=== PATIENT | male | born 1955 | race African-American/Black ===

== ENCOUNTER 2016-09-08 16:19 | Inpatient (IN) | payer OTHER ==
--- NOTE | ~2016-09-08 | CT71 ---
[facility] A Service of [facility] RADIOLOGY TEXT RESULTS PATIENT: MANDY MADRID LOCATION: [facility] 466-01 : [birth year] UNIT #: [id number] AGE: [address]: Lawson Bautista MD SEX: M ORDER DR: [id number] [facility] [address] [place], [place] [address] [id number] MR#: [id number] Acc #: [id number] NAME: MANDY MADRID : 1955 SEX: M STUDY DATE/TIME: 09/08/2016 18:48 UNIT: [facility] ROOM: [facility] STUDY DESCRIPTION: CT Head Wo Contrast Attending Physician: Lawson Bautista M.D. Ordering Physician: Samira Jade M.D. Primary Care Physician: Channing Smith M.D. MEDICAL IMAGING REPORT This report is preliminary unless electronic signature is present EXAM CT brain without contrast. HISTORY Confusion today. Lethargy. TECHNIQUE This CT exam was performed with one or more of the following radiation dose reduction techniques: automatic exposure control, adjustment of mA and/or kV according to patient size, and iterative reconstruction. FINDINGS CT brain without contrast demonstrates a large chronic infarct in the left frontal lobe and anterior temporal and parietal lobes, including the left lentiform nucleus and thalamus, with encephalomalacia within the infarcted territory, and compensatory dilatation of the left lateral ventricle, stable compared to CT 08/18/2016. No intracranial hemorrhage, mass or edema. Minimal mucosal thickening in posterior maxillary sinuses and mild mucosal thickening in the right sphenoid sinus. IMPRESSION 1. No acute findings. 2. Moderately large chronic infarct in the left frontal lobe and in the anterior left temporal and parietal lobes and in the left lentiform nucleus and thalamus. No significant change compared to 08/18/2016. Dictated by... Drew Munoz M.D. THIS IS AN ELECTRONICALLY VERIFIED REPORT Drew Munoz M.D. at 09/09/2016 3:32 PM DFL/gz [facility] A Service of [facility] RADIOLOGY TEXT RESULTS PATIENT: MANDY MADRID LOCATION: [facility] 466-01 : [birth year] UNIT #: [id number] AGE: [address]: Lawson Bautista MD SEX: M ORDER DR: TD: 09/09/2016 08:50 JOB #: [id number] MEDICAL IMAGING REPORT COPY
--- NOTE | ~2016-09-08 | A ---
[facility] Nutrition Therapy DATE: 09/09/16 Patient: MANDY MADRID Physician: NEW Address: [facility] Room/Bed: [address] [place] [address], Zip: [place] [address] Admit Date: 09/08/16 Date of : [birth year] Height: 5 2 Weight: 115 52.16 NUTRITIONAL ASSESSMENT: REASON: Enteral nutrition assessment 61 yo male admitted for AMS, hypothermia PMH: CVA, aphasia, dysphagia s/p PEG, right AKA, HTN, DM, HLD, GERD, CHF, osteomyelitis, chronic anemia Anthropometrics: Ht: 67" (per previous nutrition assessments) Adm wt: 52.2 kg BMI: 18 Adjusted IBW (for amputation): 58.8 kg, 89% IBW Labs: Na+ 146 Cl- 119 Gluc 215 BUN 73 Creat 3.1 Accuchecks 94-203 GFR 26.7 Meds: Levemir, D5%, sodium bicarbonate, pepcid, novolog, NaCl, ferrous gluconate I/O & Bowel function: 2780/0, last BM not noted, PEG Skin Integrity: Scab- BUE/ BLE/ face Edema: none noted Estimated Nutrition Needs: 8487-7823 kcals (30-35 kcals/kg) 63-78 grams protein (1.2-1.5 grams/kg) VT enteral nutrition regimen: Osmolite 1.5 - bolus 5 cans daily @ 0500, 0900, 1300, 1700, 2100 125 mL H20 flushes before and after each bolus Assessment: Chart reviewed, events noted. Pt admitted from [facility] for AMS and hypothermia. Pt has a h/o dysphagia s/p PEG and does not consume any nutrition PO. Pt is well-known to RDs at [facility], as he has had several previous admissions. Pt has increased sodium levels, and added 250 mL free H20 flushes q 6 hrs. Pt has not received enteral nutrition since admission yesterday due to aspiration risk/ to rule out aspiration (per RN report). Per VT information in chart, the pt was receiving bolus enteral nutrition as noted above. Per previous admission nutrition assessments, the pt has historically received Glucerna for enteral nutrition. Please note, the pt does have elevated blood glucose levels ranging from 94-203. RD unsure why the pt is receiving Osmolite at the VT, which has no fiber. Based on the pt[facility], he weighed ~61 kg on 08/19/16, indicating ~8.8 kg weight loss since then. Please see recommendations below. [facility] Nutrition Therapy DATE: 09/09/16 Patient: MANDY MADRID Physician: NEW Address: [facility] Room/Bed: [address] [place] [address], Zip: [place] [address] Admit Date: 09/08/16 Date of : 59 Height: 5 2 Weight: 115 52.16 Dx: Inadequate protein-energy intake RT clinical condition r/o aspiration AEB enteral nutrition being held ATT. Intervention: 1. Enteral nutrition once medically feasible Monitoring, Evaluation and Goals: 1. Enteral nutrition; provide >80% goal volume x 24 hrs 2. Labs; WNL 3. Weight; prevent weight loss, promote weight maintenance/gain 4. GI; promote regular GI function 5. Skin; prevent breakdown Recommendations: 1. Once medically feasible, would resume enteral nutrition. RD recommending to start continuous feeding instead of bolus feeding due to the pt's risk of aspiration. RD also recommending to start Glucerna 1.5 instead of Osmolite 1.5, as Osmolite does not provide fiber and RD sees no reason why the pt would need a fiber-restricted formula. -If ordered by MD, start Glucerna 1.2 @ 20 mL/hr. Increase by 10 mL q 6 hrs as tolerated to goal of 60 mL/hr. This will provide: 1728 kcals/ 86 grams protein/ 1159 mL free H20 Free H20 flushes per MD orders 2. Obtain accurate weights for trending purposes and estimating needs. 3. Ensure the HOB is upright at a minimum of 30-45 degrees during EN administration. Pt is at moderate nutritional risk. RD will follow hospital course. Respectfully, CRISTIANO MERRITT RD, LD Food and Nutritional Services [facility] cc: client file
--- NOTE | ~2016-09-08 | CO ---
Unit #: [id number] #: [id number] Patient: MANDY MADRID [id number] [address] [place], [place] [address] [id number] MR#: [id number] NAME: MANDY MADRID ROOM: [facility] Age: 61 Sex: M Admission Date: 09/08/2016 : 1955 Attending Physician: Lawson Bautista M.D. Primary Care Physician: Channing Smith M.D. Consultation Date: 09/09/2016 CONSULTATION REPORT REASON FOR CONSULTATION Renal failure. Thank you very much for asking us to see this patient in consultation. HISTORY OF PRESENT ILLNESS Mr. Raf Madrid is a 61-year-old male with history of left MCA, CVA with hemiplegia, decreased response, who presented from rehab again with decreased mental status, hypothermia, was admitted and noted to have an increased BUN and creatinine of 80 and 3.1. The patient was hypothermic and was admitted for possible sepsis. We were asked to see the patient due to renal failure. The patient currently decreased response, unable to get any history from him. PAST MEDICAL HISTORY History of left MCA, CVA with again hemiplegia, history of diabetes mellitus, history of hypertension, history of pneumonia and was discharged on 08/22/2016 felt related to MRSA and was treated with according to the records 1 g of vancomycin q.24 x2 weeks, history of right AKA, history of anemia, history of status post PEG placement, history of hyperlipidemia, history of gastroesophageal reflux disease, and history of chronic kidney disease with a baseline creatinine probably around 1.5 plus or minus. SOCIAL HISTORY He is at [facility]. No smoking or alcohol. ALLERGIES Include lactulose. FAMILY HISTORY Unable to obtain. REVIEW OF SYSTEMS Unable to obtain. CURRENT MEDICATIONS Include still is on vancomycin, Diflucan, Levemir, Plavix, aspirin, Rapaflo, tobramycin, Zosyn, hydralazine, Pepcid, and insulin. PHYSICAL EXAMINATION GENERAL: Again decreased response currently. VITAL SIGNS: His highest temperature is 97.4, it was low in the low 90s, his pulse 44 to 71, blood pressure 94 to 146/54 to 98. He had 2800 in and output not recorded, although it looks like about 600 to 700 cc in his Unit #: [id number] #: [id number] Patient: MANDY MADRID right now. HEENT: His pupils are reactive to light. Mouth is dry. NECK: Supple. No adenopathy. CARDIAC: He is without a rub. Appears to have a regular rhythm. LUNGS: Have a few occasional rhonchi only. ABDOMEN: Bowel sounds are positive. Nontender. Has a feeding tube present. EXTREMITIES: He has a right AKA. Left have no lower extremity swelling. SKIN: No acute rashes. NEUROLOGIC: Again decreased response, history of stroke. : Jane catheter is in place. DIAGNOSTIC STUDIES LABORATORY RESULTS: This morning shows sodium down to 146 from 149, potassium 4.3, chloride is 119, CO2 of 17 down from 20, BUN 73 down from 80, creatinine still 3.1, glucose 215. Albumin is 2.7, alkaline phosphatase 138. His hemoglobin is 10.1, white count 4100, platelets 151,000. His creatinine on 08/27/2016 was 1.4. His UA shows specific gravity of 1.016, 2+ protein, 100 to 200 rbc's, too numerous to count wbc's, positive yeast. His blood cultures that are pending. Urine cultures that is pending. Urine eosinophils that is pending. IMAGING STUDIES: His chest x-ray showed a questionable left basilar infiltrate still. ASSESSMENT AND PLAN 1. Acute on chronic kidney disease, stage 3. Certainly, the patient with increased creatinine, it could be related to vancomycin versus sepsis with hypoperfusion versus volume depletion versus other. I agree with IV fluids for now, although we will adjust it to D5W with 3 amps of bicarb at 125 mL/hour. Keep Jane in and we will follow input and output closely. We will check full set of electrolytes in the morning. 2. Hypernatremia. Sodium is improving. The patient most likely has a hypovolemic hypernatremia as well as probably free water deficit, again adjust fluids. He is getting free water and his Dobbhoff tube as well was ordered, agree with continuing this. 3. Acidosis most likely related to kidney failure. We will change his fluids to D5W with 3 amps of bicarb at 125 mL/hour. We will follow. 4. Hypothermia with possible sepsis/urinary tract infection/pneumonia. We will go ahead and discontinue vancomycin and tobramycin, and keep on Zosyn and Diflucan for now. 5. History of cerebrovascular accident with decreased response. Dictated by.Kristine Olivier/claudia TD: 09/10/2016 00:48 JOB #: [id number] Unit #: [id number] #: [id number] Patient: MANDY MADRID CONSULTATION REPORT X Beth Florez MD X CONSULTATION REPORT
--- NOTE | ~2016-09-08 | CO ---
Unit #: [id number] #: [id number] Patient: MANDY MADRID [id number] [address] [place], [place] [address] [id number] MR#: [id number] NAME: MANDY MADRID ROOM: [facility] Age: 61 Sex: M Admission Date: 09/08/2016 : 1955 Attending Physician: Samira Jade M.D. Primary Care Physician: Channing Smith M.D. Consultation Date: 09/08/2016 CONSULTATION REPORT REASON FOR CONSULTATION Altered mental status and possible pneumonia. HISTORY OF PRESENT ILLNESS This is an unfortunate 61-year-old -[place] gentleman with a past medical history significant for left MC, MRSA pneumonia, chronic kidney disease, and hypertension who presented to the emergency room from the custodial for evaluation of altered mental status. Patient is nonverbal and unable to provide any history. He is currently lethargic but he is moving all his extremities spontaneously. His labs are consistent with severe acute kidney injury and hyponatremia. His lactic acid was normal on presentation but his blood gas is consistent with metabolic acidosis. Patient's blood pressure has been stable and he is making urine at adequate rate so far. Upon presentation his temperature was also low and he needed Bearhugger. PAST MEDICAL HISTORY 1. Left MCA, cerebrovascular accident with right hemiplegia, and spasticity with an expressive aphasia and dysphagia. 2. Diabetes. 3. Hypertension. 4. Hyperlipidemia. 5. GERD. 6. Chronic kidney disease. PAST SURGICAL HISTORY 1. Right below the knee amputation. 2. PEG tube placement. 3. EGD. SOCIAL HISTORY The patient is a custodial resident. His code status is full code. There is no tobacco or alcohol use in the records. FAMILY HISTORY Noncontributory. ALLERGIES Lactulose. Unit #: [id number] #: [id number] Patient: MANDY MADRID HOME MEDICATION 1. Aspirin. 2. Plavix. 3. Pepcid. 4. Hydralazine. 5. Protonix. 6. Diflucan. 7. Lasix. 8. Flomax. 9. Novolin R. REVIEW OF SYSTEMS Unable to obtain from the patient due to his condition. PHYSICAL EXAMINATION GENERAL: The patient is lethargic, not following commands. HEENT: Head atraumatic and normocephalic. EOMI. NECK: Supple. No JVD. No lymphadenopathy. CHEST: Bilateral diminished breath sounds at the bases, mainly abdomen soft, nontender, bowel sounds is positive. No hepatosplenomegaly. EXTREMITIES: No edema or cyanosis. SKIN: No rashes. LIQUOR BLENDER: Patient is moving his left side. He is nonverbal. He does not follow any commands. DIAGNOSTIC STUDIES LABORATORY STUDIES: Creatinine 3.1, sodium 151, chloride 124, white blood count 3.8. IMAGING STUDIES: Chest x-ray is showing much improvement in his infiltrate compared to last month. ASSESSMENT 1. Toxic metabolic encephalopathy. 2. UTI. 3. Hyponatremia. 4. Nonanion gap metabolic acidosis. 5. Acute on chronic kidney disease. 6. Chronic anemia. 7. Diabetes. 8. Hypertension. 9. History of liver MCA CVA. PLAN 1. Chest x-ray was reviewed by me and I doubt that the patient has pneumonia; however, aspiration pneumonia is always a possibility in his condition. 2. Will continue his broad spectrum antibiotics but likely will be able to de-escalate most of them, if not all soon based on culture. 3. Will add Diflucan to cover for yeast UTI. 4. IV hydration with special attention to his bicarb and sodium. 5. Add free water. 6. DVT and GI prophylaxis. I would like to thank you for allowing me to be part of this patient's care. Unit #: [id number] #: [id number] Patient: MANDY MADRID Dictated by... Melody Traylor M.D. EA/cliff TD: 09/09/2016 06:29 JOB #: [id number] CONSULTATION REPORT X MELODY CHERRY MD CONSULTATION REPORT
--- NOTE | ~2016-09-08 | TOC ---
Unit #: [id number] #: [id number] Patient: MANDY MADRID [id number] [address] [address] [id number] MR#: [id number] NAME: MANDY MADRID ROOM: 469 Age: 61 Sex: M Admission Date: 09/08/2016 : 1955 Attending Physician: Lawson Bautista M.D. Primary Care Physician: Channing Smith M.D. TRANSFER OF CARE SUMMARY WORKING DIAGNOSES 1. Hypothermia. Ruled out infectious process. 2. Acute on chronic kidney disease. 3. History of MRSA. 4. Ruled out aspiration pneumonia. 5. Hyponatremia. 6. Urinary tract infection with an. 7. History of left middle cerebral artery cerebrovascular accident with residual right-sided hemiplegia and aphasia. 8. Type 2 diabetes. 9. Essential hypertension. 10. Hyperlipidemia. 11. Chronic anemia. 12. History of osteomyelitis. 13. Severe chronic protein malnutrition. Dietary is following on tube feeding. PROCEDURES None. DIAGNOSTIC DATA IMAGING: Chest x-ray on 09/08/2016, findings compared to 08/22/2016. There has been partial clearing of the left base with probable mild remaining infiltrate or atelectasis in the retrocardiac left lower lobe, mild cardiac enlargement persists. The pulmonary and vascularity is normal. The remainder of the lungs are clear. No pleural effusions. Head CT of 09/08/2016, no acute findings. Moderately large chronic infarct in the left frontal lobe and in the anterior left temporal and parietal lobes and in the left lentiform nucleus and thalamus. No significant change compared to 09/04/2016. Ultrasound of the kidneys 09/08/2016 with impression of increased bilateral cortical echotexture suggesting changes of chronic medical renal disease. Normal size of the kidneys with normal cortical thickness. No shadowing stone or hydronephrosis. No renal mass lesion is identified. LABORATORY: To date, BMP with glucose of 240, BUN 35, creatinine 2.6, sodium 141, potassium 3.8, chloride 110, CO2 26, calcium 3.8, phosphorus 3.8, magnesium 1.9, total protein 2.6, albumin 2.4, total bilirubin 0.8. CBC with white blood cell count 5.3, RBC 3.86, hemoglobin 5.9, hematocrit 30.9, MCV 80.1, MCH 24.8, MCHC 30.9, RDW 21.3, platelets 87, MPV 9.9. CONSULTANTS Unit #: [id number] #: [id number] Patient: MANDY MADRID Dr. Louise, Dr. Laureen Traylor of pulmonary. Dr. Florez of nephrology. HOSPITAL COURSE The patient is a 61-year-old male with a past medical history of left MCA, cerebrovascular accident, MRSA pneumonia, chronic kidney disease, essential hypertension, diabetes, hyperlipidemia, chronic anemia, osteomyelitis. The patient was referred to the emergency department by the group home for evaluation of hypothermia, altered mental status. History was obtained from chart review and discussion with the emergency room staff. The patient has aphasia and is nonverbal at baseline. The patient was sent from the group home for hypothermia and decreased responsiveness. At the group home he was sitting in the chair. He is nonverbal at baseline. Upon arrival in the emergency department his temperature was 90 degrees, pulse 45, respiratory rate 10, blood pressure 113/82, oxygen saturation was 100% on 2 liters. Chest x-ray shows improvement infiltrate in the left base. Lab was significant for acute kidney injury with a creatinine of 3.1. White blood cell count was 3.8, lactic acid was 1.9. He was placed on Bear hugger, given aggressive IV fluid hydration and was treated with vancomycin, Zosyn and tobramycin. The patient was admitted for possible sepsis, hypothermia and possible aspiration pneumonia, as well as acute kidney injury and hyponatremia. The patient was seen in consultation with pulmonary, who reviewed his chest x-ray and felt that the patient did not have pneumonia, but there was always the possibility the patient had aspiration pneumonia. At this time the patient is oxygenating well on room air in the mid 90s on room air. He has been off of oxygen. I highly doubt that he even had any pneumonia nor aspiration pneumonia. Antibiotics were not continued at this time. We did find that the patient did have yeast in his urine and he has been treated with Diflucan to date, stopping at this time. We are checking a urinalysis and culture to see if there is any component of urinary tract infection at this point. With regard to his acute kidney injury, nephrology is following him. No eosinophils are seen in his urine. We are trying to see how the patient's kidney function will progress with discontinuation of the IV fluids and just giving him his tube feedings and free fluid. The initial thought was that this may be due to Lasix, but Lasix was discontinued at the last hospitalization and I have reviewed his group home medications and they do not include Lasix. I believe that some of this acute kidney injury was due to the use of vancomycin. During his last hospitalization discharge it was recommended that he be completed with a course of vancomycin IV for a total of two weeks since he was intubated and MRSA had grown out of his sputum culture at that time. Again, no signs of pneumonia at this time. He has been off of antibiotics. The patient would still become hypothermic at this time with the lowest temperatures in the 94s. I believe the patient is severely protein malnourished despite having his PEG tube feedings. Nutrition is following, but with the severe malnourished condition the patient likely has no body fat to keep up with his body temperature. At this time I am recommending that the Bear hugger be taken off completely and not be restarted. If his body temperature does fall below 95 we can check the blood culture and check a procalcitonin to ensure that there is indeed no infectious process going on at this time. Again, would not treat this patient with any antibiotics at this time as I do not find a source for his infection. Long-term outlook, prognosis is very poor. The patient is a full code. CURRENT MEDICATIONS 1. Hydralazine 50 mg q.8 h. through the PEG. Unit #: [id number] #: [id number] Patient: MANDY MADRID 2. Folic acid 1 mg daily through the PEG. 3. Protonix 40 mg daily through the PEG. 4. FeroSul 324 mg daily through the PEG. 5. Plavix 75 mg daily through the PEG. 6. Aspirin 81 mg daily through the PEG. 7. Levemir 5 units subcutaneous at nighttime. 8. Sliding scale low dose q.i.d. Dictated by... CHICHO Garcia TD: 09/12/2016 13:20 JOB #: [id number] TRANSFER OF CARE SUMMARY X X TRANSFER OF CARE SUMMARY
--- NOTE | ~2016-09-08 | FU ---
[facility] Nutrition Therapy DATE: 09/12/16 Patient: MANDY MADRID Physician: NEW Address: [facility] Room/Bed: [address] [place] [address], Zip: [place] [address] Admit Date: 09/08/16 Date of : [birth year] Height: 5 2 Weight: 114 52.16 NUTRITION MONITORING/FOLLOW-UP: Reason: PT SEEN FOR FOLLOW-UP/ENTERAL NUTRITION SUPPORT DX: HYPOTHERMIA, PNA Anthropometrics: 5'7", WT: 114# (52 KG), BMI: 17.9 -ADMIT WEIGHT: 114# Labs: GLU: 240, BUN: 35, CREAT: 2.6, CA+:8.3, ALB: 2.4, A1c: 10.0 (07/01/16), GFR: 32.7 Meds: FOLIC ACID, PROTONIX, NACL I&O's: 2840/1508 Skin: ISSUES NOTED (PT IS (R) AKA) Estimated Nutrition Needs: 3332-6629 KCAL 63-78 G PRO Assessment: CHART REVIEWED AND EVENTS NOTED. PT SEEN FOR FOLLOW-UP. PT CURRENTLY NPO, HAS NOT RECEIVED ENTERAL NUTRITION SUPPORT SINCE ADMIT 09/08/16 (NPO X 4 DAYS). NO FAMILY IN ROOM AT TIME OF VISIT. PLANS IN PLACE TO BEGIN ALTERNATIVE NUTRITION SUPPORT PER RD RECOMMENDATIONS. RD TO CONTINUE TO FOLLOW. SEE RECOMMENDATIONS BELOW. Dx: INADEQUATE PROTEIN-ENERGY INTAKE R/T CLINICAL CONDITION R/O ASPIRATION AEB ENTERAL NUTRITION BEING HELD ATT= NOT RESOLVED. Intervention: 1. ENTERAL NUTRITION ON HOLD, NPO X 4 DAYS! Monitoring, Evaluation and Goals: GOALS NOT MET 1. ENTERAL NUTRITION; PROVIDE >80% GOAL VOLUME X 24 HOURS 2. LABS; WNL 3. WEIGHTS; PREVENT WEIGHT LOSS; PROMOTE WEIGHT MAINTENANCE 4. GI; PROMOTE REGULAR GI FUNCTION 5. SKIN; PREVENT BREAKDOWN MONITOR: -TF INITIATION/RATE/RESIDUALS -LABS -WEIGHTS Recommendations: [facility] Nutrition Therapy DATE: 09/12/16 Patient: MANDY MADRID Physician: NEW Address: [facility] Room/Bed: [address] [place] [address], Zip: [place] [address] Admit Date: 09/08/16 Date of : 59 Height: 5 2 Weight: 114 52.16 1. ONCE MEDICALLY FEASIBLE, BEGIN ALTERNATIBE NUTRITION SUPPORT OF GLUCERNA 1.2 @ 10 ML/HR, ADVANCE 10 ML q 6 HOURS TO GOAL RATE OF 60 ML/HR X 24 HOURS -PROVIDES 1728 KCAL, 86 G PRO, 1166 ML FREE H20 CONTINUE FREE H20 FLUSHES OF 200 ML q 6 HOURS PER MD ORDERS (1966 ML TOTAL H20) 2. CONTINUE TO OPTIMIZE BOWEL REGIMEN 3. CONTINUE TO OBTAIN WEIGHTS q 3 DAYS FOR MONITORING PURPOSES 4. ENSURE HOB IS UPRIGHT AT A MINIMUM OF 30-[address] ADMINISTR[address] WILL F/U PER PROTOCOL PT IS MODERATELY COMPROMISED Respectfully, JORDY GUADALUPE MS, RD, LD Food and Nutritional Services [facility] cc: client file
--- NOTE | ~2016-09-08 | EKG ---
PATIENT: MANDY MADRID UNIT #: [id number] Ventricular Rate: 44 BPM Atrial Rate: 44 BPM P-R Interval: 184 ms QRS Duration: 106 ms Q-T Interval: 510 ms QTC Calculation(Bezet): 436 ms P [place]: 69 degrees Calculated R [place]: -14 degrees Calculated T [place]: 104 degrees Diagnosis Line: Marked sinus bradycardia Diagnosis Line: Voltage criteria for left ventricular hypertrophy Diagnosis Line: ST and T wave abnormality, consider lateral ischemia Diagnosis Line: Abnormal ECG Diagnosis Line: When compared with ECG of 19-AUG-2016 08:11, Diagnosis Line: Significant changes have occurred Diagnosis Line: Confirmed by NIRALI FAITH MD ([id number]) on 09/08/2016 Diagnosis Line: 7:35:41 PM INTERPRETING MD: VIANNEY SHORT
--- NOTE | ~2016-09-08 | DS ---
Unit #: [id number] #: [id number] Patient: MANDY MARDID [id number] [address] [address] [id number] I MR#: [id number] NAME: MANDY MADRID ROOM: 469 Age: 61 Sex: M Admission Date: 09/08/2016 : 1955 Discharge Date: 09/14/2016 Attending Physician: Massiel Demarco M.D. Primary Care Physician: Channing Smith M.D. DISCHARGE SUMMARY HISTORY OF PRESENT ILLNESS Please see interval discharge summary dictated from September 12, 2016. 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 Through hospital course, essentially infection process was ruled out. Initial laboratory studies revealed a creatinine of 3.1. Today at time of discharge, his creatinine now stands at 2.5 which appears to be his baseline. His lactic acid level was 1.9. He was placed on appropriate IV fluids as well as a sepsis protocol. His x-ray initially did not show any acute infiltrate; however, pulmonary services including Dr. Louise was consulted secondary to consideration for possible aspiration. At this point in time, he appears stable for discharge. Overall, his long-term prognosis is poor at best and has been already reinforced with the sister of the patient on numerous occasions. FINAL DISCHARGE DIAGNOSES 1. Mental status changes, now resolved. 2. Acute on chronic kidney disease, baseline creatinine 2.5. 3. Hypothermia on admission, now resolved. 4. Prior history of numerous hospital admissions secondary to acute respiratory failure from methicillin-resistant Staphylococcus aureus/aspiration pneumonia. 5. Chronic hyponatremia. 6. Urinary tract infection. 7. 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 8. Type 2 diabetes. 9. Hypertension. 10. Hyperlipidemia. 11. Severe chronic protein malnutrition. DISCHARGE MEDICATIONS 1. Hydralazine 50 mg p.o. q.8. Unit #: [id number] #: [id number] Patient: MANDY MADRID 2. Osmolite 1.5 liquid PEG. 3. NovoLog q.6 low dose sliding scale. 4. Levemir 5 units subcutaneous nightly. 5. Ferrous gluconate 324 mg PEG daily. 6. Aspirin 81 mg PEG daily. 7. Plavix 75 mg PEG daily. 8. Pepcid 20 mg PEG b.i.d. 9. Folic acid 1 mg PEG daily. 10. Rapaflo 8 mg PEG daily. DISCHARGE CONDITION Stable. DISCHARGE DISPOSITION Back to snf. PROGNOSIS Poor. Dictated by... Kristine Claros/callie TD: 09/14/2016 08:57 JOB #: [id number] DISCHARGE SUMMARY X Massiel Demarco MD X DISCHARGE SUMMARY
--- NOTE | ~2016-09-08 | HP ---
Unit #: [id number] #: [id number] Patient: MANDY MADRID [id number] [address] [place], [place] [address] [id number] MR#: [id number] NAME: MANDY MADRID ROOM: Age: 61 Sex: M Admission Date: 09/08/2016 : 1955 Attending Physician: Chris Bueno M.D. Primary Care Physician: Channing Smith M.D. HISTORY AND PHYSICAL CHIEF COMPLAINT Altered mental status. HISTORY OF PRESENT ILLNESS The patient is a 61-year-old male with past medical history of left MCA cerebrovascular accident, MRSA pneumonia, chronic kidney disease, hypertension, diabetes, hyperlipidemia, chronic anemia, osteomyelitis, who presented to the emergency department from the assisted for evaluation of the above. History is obtained from chart review and discussion with the ER staff due to the patient's altered mental status and baseline neurologic function. The patient was apparently sent from the assisted for hypothermia and decreased responsiveness. Apparently at the assisted he was sitting up in the chair yesterday. He is nonverbal at baseline. Upon arrival in the emergency department rectal temperature was 90, pulse 45, respirations 10, blood pressure 113/82, oxygen saturation was 100% on two liters. Chest x-ray shows improving infiltrate at the left base. Laboratory notable for white blood cell count of 3.8, creatinine is 3.1, lactic acid 1.9. He was placed on a Rhina Hugger, given 1 L of normal saline. He has also been given vancomycin, Zosyn and tobramycin. He is being admitted to [facility] for evaluation and further treatment. PAST MEDICAL HISTORY 1. Admission to [facility] August 18-2016 for altered mental status, healthcare-associated pneumonia, hypernatremia. He did require intubation during that admission. Sputum culture grew MRSA. He was discharged to the assisted on vancomycin. 2. Left MCA cerebrovascular accident with right hemiplegia and spasticity with expressive aphasia and dysphagia. The patient is status post PEG tube placement. 3. Diabetes. 4. Hypertension. 5. Hyperlipidemia. 6. GERD. 7. Chronic anemia. 8. Chronic kidney disease with a baseline creatinine of 1.7. 9. 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 PAST SURGICAL HISTORY 1. Right below the knee amputation. Unit #: [id number] #: [id number] Patient: MANDY MADRID 2. PEG tube placement. 3. EGD. SOCIAL HISTORY The patient is at a assisted. His code status is a Full Code. There is no tobacco or alcohol use. FAMILY HISTORY Family history is unobtainable. ALLERGIES Lactose. HOME MEDICATIONS Home medications include ferrous gluconate, aspirin, Plavix, Pepcid, hydralazine, Protonix, Diflucan, Lasix, Flomax, Novolin R. Home medications will need to be reviewed and verified. REVIEW OF SYSTEMS A complete review of systems is unobtainable from the patient due to altered mental status. DIAGNOSTIC STUDIES CARDIOVASCULAR: EKG shows marked sinus bradycardia with a rate of 44 beats per minute. There is T-wave inversion in leads V4-V6. IMAGING: Chest x-ray shows partial clearing of left basilar infiltrate. LABORATORY: Lactic acid is 1.9. INR is 1. Comprehensive metabolic panel is notable for a sodium of 149, chloride is 120, bicarb is 20, glucose 184, BUN and creatinine 80 and 3.1 respectively, alkaline phosphatase 159, total protein 8.5, albumin is 3.1. Complete blood count notable for white blood cell count of 3.8, hemoglobin and hematocrit 10.9 and 36.5 respectively. Urinalysis notable for 3+ leukocyte esterase, 2+ protein, 100 to 200 red blood cells, innumerable white blood cells. PHYSICAL EXAMINATION VITAL SIGNS: Temperature is 90. Pulse 45. Respirations 10. Blood pressure 113/82. Oxygen saturation is 100% on 2 L. GENERAL: The patient is an -Bhut[place] male who is lethargic. He opens eyes to physical stimuli. He is moving his left upper and lower extremities. HEENT: The head is atraumatic. Mucous membranes are dry. NECK: Neck is supple. Trachea is midline. CARDIOVASCULAR: Bradycardic in the 40s. LUNGS: Lungs demonstrate scattered rhonchi. Breathing is not labored. ABDOMEN: Abdomen is soft. He does have a PEG tube in place. Bowel sounds are present in all four quadrants. EXTREMITIES: The right lower extremity has been previously amputated. He does have Steri-Strips in place. There is no erythema. There is no pedal edema involving the left lower extremity. NEUROLOGIC: The patient is moving his left side. He opens eyes to painful stimuli. He is aphasic, agitated with bizarre behavior at baseline apparently. PSYCHIATRIC: Unable to assess. SKIN: Skin of examined areas is warm and dry. ASSESSMENT Unit #: [id number] #: [id number] Patient: MANDY MADRID The patient is a 61-year-old male with: 1. Hypothermia concerning for possible sepsis. 2. History of methicillin-resistant Staphylococcus aureus pneumonia. The patient was discharged on vancomycin. Chest x-ray today is showing interval improvement of the basilar infiltrate that was previously noted. 3. Opncu-xh-sciflqr kidney disease. The patient's creatinine was 1.4 on August 27, 2016. It is 3.1 today. He is on Lasix which could be contributing. 4. Hypernatremia. The patient appears dehydrated. He is on tube feeds at the assisted. Will need to clarify the regimen. 5. Urinary tract infection. Urine culture from August 09, 2016 grew yeast species but the rest have been no growth. 6. History of left middle cerebral artery cerebrovascular accident with residual right-sided hemiplegia and aphasia. 7. Diabetes. The patient had a hemoglobin A1C on July 01, 2016 that was 10. 8. Hypertension. 9. Hyperlipidemia. 10. Chronic anemia. The patient's hemoglobin was 9.6 on August 27. It is 10.9 today. 11. History of osteomyelitis with cultures as noted above. PLAN 1. Admit to intermediate level. 2. N.p.o. 3. Rhina hugger per protocol. 4. Blood cultures x2, 5. Sputum culture and sensitivity. 6. Supplemental oxygen 2 to 4 L to maintain saturations greater than 92%. 7. Check ABG. 8. Sepsis protocol with repeat lactic acid. 9. Vancomycin IV, tobramycin IV, Zosyn IV for possible healthcare-associated pneumonia pending further workup. 10. Procalcitonin level. 11. Streptococcal and Legionella urine antigens. 12. Consult Dr. Traylor regarding possible pneumonia. 13. Normal saline at 75 mL an hour. 14. Urine sodium, creatinine and eosinophils. 15. Renal ultrasound for further evaluation of wujrb-wl-jamdqqr kidney disease. 16. Strict Is and Os. 17. Hold Lasix. 18. Will also hold tube feeds for now. 19. Repeat BMP later this evening to follow up hypernatremia. 20. Neuro checks. 21. Low dose sliding-scale insulin with Accu-Cheks. 22. Monitor heart rate closely. 23. May need to start the patient on dopamine drip. 24. Serial cardiac enzymes. 25. Urine culture and sensitivity on urine in the lab. 26. Repeat labs in the morning. 27. Regarding code status: The patient is a Full Code. Unit #: [id number] #: [id number] Patient: MANDY MADRID Dictated by Kristine Wolfe/lexa TD: 09/08/2016 18:33 JOB #: [id number] HISTORY AND PHYSICAL X Samira Jade MD HISTORY AND PHYSICAL
--- NOTE | ~2016-09-08 | CR72 ---
[facility] A Service of [facility] & [facility] RADIOLOGY TEXT RESULTS PATIENT: MANDY MADRID LOCATION: [facility] 466-01 : [birth year] UNIT #: [id number] AGE: [address]: Lawson Bautista MD SEX: M ORDER DR: [id number] [facility] [address] [place], [place] [address] [id number] I MR#: [id number] Acc #: [id number] NAME: MANDY MADRID : 1955 SEX: M STUDY DATE/TIME: 09/08/2016 15:14 UNIT: [facility] ROOM: [facility] STUDY DESCRIPTION: CR Chest Single View Portable Attending Physician: Samira Jade M.D. Ordering Physician: Skip Gardner M.D. Primary Care Physician: Channing Smith M.D. MEDICAL IMAGING REPORT This report is preliminary unless electronic signature is present EXAM Portable chest HISTORY Shortness of air today. No injury. FINDINGS Compared to 08/22/2016, there has been partial clearing of the left base with probable mild remaining infiltrate or atelectasis in the retrocardiac left lower lobe. Mild cardiac enlargement persists. The pulmonary vascularity is normal. The remainder of the lungs are clear. No pleural effusions. Dictated by... Drew Munoz M.D. THIS IS AN ELECTRONICALLY VERIFIED REPORT Drew Munoz M.D. at 09/09/2016 3:29 PM DFL/psc TD: 09/09/2016 01:51 JOB #: [id number] MEDICAL IMAGING REPORT COPY
--- NOTE | ~2016-09-08 | US77 ---
[facility] A Service of [facility] RADIOLOGY TEXT RESULTS PATIENT: MANDY MADRID LOCATION: [place] [address] : [birth year] UNIT #: [id number] AGE: [address]: Lawson Bautista MD SEX: M ORDER DR: [id number] [facility] [address] [place], [place] [address] [id number] I MR#: [id number] Acc #: [id number] NAME: MANDY MADRID : 1955 SEX: M STUDY DATE/TIME: 09/08/2016 20:51 UNIT: [facility] ROOM: [facility] STUDY DESCRIPTION: US Kidney Bilateral Complete Attending Physician: Lawson Bautista M.D. Ordering Physician: Samira Jade M.D. Primary Care Physician: Channing Smith M.D. MEDICAL IMAGING REPORT This report is preliminary unless electronic signature is present EXAM Bilateral renal ultrasound. DATE 09/08/2016 at 205 HISTORY Acute on chronic kidney disease. GFR 25.7. COMPARISON Bilateral renal ultrasound, 05/22/2016. FINDINGS The right kidney measures 11.2 cm and the left kidney measures 11.7 cm in length. While there is normal cortical thickness, the cortical echotexture bilaterally appears somewhat echogenic. No cystic or solid renal mass lesion, shadowing stone, or hydronephrosis is appreciated on either side. Urinary bladder is not visualized and decompressed. IMPRESSION 1. Increased bilateral cortical echotexture suggesting changes of chronic medical renal disease. Normal size of the kidneys with normal cortical thickness. 2. No shadowing stone or hydronephrosis. No renal mass lesion is identified. Dictated by... Marielle Shearer M.D. THIS IS AN ELECTRONICALLY VERIFIED REPORT Marielle Shearer M.D. at 09/09/2016 2:09 PM [facility] A Service of [facility] & [facility] RADIOLOGY TEXT RESULTS PATIENT: MANDY MADRID LOCATION: [facility] : 59 UNIT #: [id number] AGE: [address]: Lawson Bautista MD SEX: M ORDER DR: MISTY/carla TD: 09/09/2016 09:36 JOB #: [id number] MEDICAL IMAGING REPORT COPY
[2016-09-08 15:22] LABS: BASOPHIL% 0.2 % (0-2.5); EOSINOPHIL# 0.2 X10e3 (0-0.7); EOSINOPHIL% 4.7 % (0.0-7.0); HEMATOCRIT 36.5 % (38.0-50.0); HEMOGLOBIN 10.9 gm/dL (13.0-16.0); LYMPHOCYTE% 26.8 % (17.0-45.0); MEAN CELL VOLUME 83.6 FL (83-96); MEAN CORPUSCULAR HGB CONC 29.9 g/dL (30-36); MEAN PLATELET VOLUME 10.2 FL (6.5-11.5); MONOCYTE# 0.3 X10e3 (0-1.0); NEUTROPHIL# 2.3 X10e3 (1.5-7.1); NEUTROPHIL% 61.3 % (40-75); PLATELET COUNT 167 X10e3 (140-420); RED BLOOD COUNT 4.37 X10e (3.90-5.60); RED CELL DISTRIBUTION WIDTH 22.6 % (11.0-15.5); WHITE BLOOD COUNT 3.8 X10e3 (4.0-10.5)
[2016-09-08 15:23] LABS: DIFF IND YES
[2016-09-08 15:29] LABS: PARTIAL THROMBOPLASTIN TIME 36.2 SECONDS (23.5-31.3); PROTHROMBIN TIME (PATIENT) 10.7 SECONDS (9.6-11.5)
[2016-09-08 15:58] LABS: URINE SOURCE CLEAN CATCH
[2016-09-08 16:06] LABS: ALBUMIN SERUM 3.1 g/dL (3.5-5.0); ALKALINE PHOSPHATASE 159 U/L (32-92); ALT (SGPT) 32 U/L (10-40); AST (SGOT) 28 U/L (10-42); BILIRUBIN,TOTAL 0.5 mg/dL (0.2-2.0); BLOOD UREA NITROGEN 80 mg/dL (9-23); CALCIUM SERUM 9.6 mg/dL (8.4-10.2); CARBON DIOXIDE 20 mmol/L (22-31); CHLORIDE 120 mmol/L (100-111); CREATININE SERUM 3.1 mg/dL (0.6-1.4); GLOM FILT RATE Estimated 26.7 mL/min (>60); GLUCOSE FASTING 184 mg/dL (70-110); POTASSIUM 3.8 mmol/L (3.5-5.1); PROTEIN TOTAL SERUM 8.5 g/dL (6.0-8.3); SODIUM 149 mmol/L (135-145)
[2016-09-08 16:07] LABS: BILIRUBIN, DIRECT <0.1 mg/dL (0.0-0.2); BILIRUBIN,INDIRECT 0.4 mg/dL (0.0-0.9)
[~2016-09-08 16:19] MED LIST: ACETAMINOPHEN PO; ACID CONTROL20 MG PO; ALOE VESTA56 G1 TOP; AMLODIPINE BESYL5 MG PO; ANTI-DIARRHEAL2 M1 PO; ASPIRIN81 MG PEG; ASPIRIN81 MG PO; ATIVAN2 MG/1 ML IM; ATIVAN2 MG/M1 PO; BACTROBAN15 GM TD; BARRIER TD; BENTYL20 MG PO; CARVEDILOL3.125 MG PO; CLOPIDOGREL75 MG PEG; CLOPIDOGREL75 MG PO; DEPAKOTE SPRIN125 MG PO; DEPAKOTE SPRINKLE; DEPAKOTE250 MG PO; DIFLUCAN200 MG GT; DIFLUCAN200 MG PEG; FAMOTIDINE PEG; FAMOTIDINE20 M1 PO; FEROSUL325 ( 651 PO; FERRIC SULFATE1 GM PO; FERRO-TIME325 MG PO; FERROUS GL324 ( 36 ) PEG; FERROUS GLUCON324 MG PO; FLAGYL GT; FLOMAX0.4 M1 PEG; FLOMAX0.4 M1 PO; HUMULIN R100 U/ML; HUMULIN R100 U/ML SUBQ; HYDRALAZINE HCL25 MG PEG; IMODIUM2 MG PO; JEVITY 1.5 CA1000 ML GT; JEVITY 1.5 CA1000 ML PO; LANTUS100 UNITS/ SUBQ; LASIX20 MG PEG; LEVEMIR FL100 UNIT/1 SQ; LEVEMIR SUBQ; LEVEMIR100 UNITS/ SUBQ; LEXAPRO20 MG PO; LIPITOR40 MG PO; LISINOPRIL20 MG PO; LOPERAMIDE HCL2 M1 PO; LORAZEPAM INT2 MG/ML PO; LOVENOX30 MG/0.3 INJ; MAGIC BUTT CREAM; MAGIC BUTT CREAM TOP; MELATONIN3 M4 PO; MUPIROCIN TOP; MUPIROCIN0.9 GM TOP; NICOTINE TRANSD14 MG TD; NORVASC10 MG PO; NOVOLIN R100 UNITS/ SUBQ; NOVOLOG100 U/M2; NOVOLOG100 U/M2 SUBQ; NOVOLOG100 U/ML; NOVOLOG100 U/ML SUBQ; NOVOLOG100 UNITS/; NOVOLOG100 UNITS/ SUBQ; OMEPRAZOLE40 M1 PO; PAIN & FEVER500 MG PO; PEPCID AC20 M2 PO; PEPCID GT; PERCOCET 5-3251 TAB GT; PLAVIX PO; PRINIVIL5 MG PO; PROTONIX PEG; PROTONIX PO; RISPERDAL12.5 MG/2 IM; ROCEPHIN IV
[2016-09-08 16:20] LABS: PLATELET ESTIMATE NORMAL (NORMAL)
[2016-09-08 16:39] LABS: URINE APPEARANCE TURBID; URINE BILIRUBIN NEG (NEG); URINE BLOOD TRACE (NEG); URINE COLOR YELLOW; URINE GLUCOSE NEG (NEG); URINE KETONE NEG (NEG); URINE LEUKOCYTE ESTERASE 3+ (NEG); URINE NITRATE NEG (NEG); URINE PROTEIN 2+ (NEG); URINE SPECIFIC GRAVITY 1.016 (1.003-1.035); URINE UROBILINOGEN 0.2 MG/DL (NEG)
[2016-09-08 16:41] LABS: CULTURE INDICATED? YES; URBCS1 AUWI 100-200 /[HPF] (0-2); URINE BACTERIA AUWI NEG (NEGATIVE); URINE SQUAMOUS EPITHELIAL CELL OCC /[HPF]; UWBCS1 AUWI INNUM (0-5)
[2016-09-08 16:44] LABS: U HYALINE CASTS AUWI 0-2 /[LPF]
[2016-09-08 17:17] LABS: URINE YEAST PRESENT
[2016-09-08 20:00] LABS: ARTERIAL BLD GAS O2 SATURATION 93.1 % (90.0-100.0); ARTERIAL BLOOD GAS CARBOXY HB 1.4 %sat (0.0-9.0); ARTERIAL BLOOD GAS HCO3 17.4 mmol/L; ARTERIAL BLOOD GAS PCO2 35.6 mmHg (35.0-45.0); ARTERIAL BLOOD GAS pH 7.297 (7.350-7.450)
[2016-09-08 20:01] LABS: ARTERIAL BLOOD GAS PO2 71.4 mmHg (80.0-100); ARTERIAL DRAW? YES
[2016-09-08 20:02] LABS: ARTERIAL BLOOD GAS ART SITE RIGHT FEMORAL
[2016-09-08 20:45] LABS: CK TOTAL 49 IU/L (36-174)
[2016-09-08 20:46] LABS: BUN/CREATININE RATIO 23.75; CALCIUM SERUM 9.1 mg/dL (8.4-10.2); CREATININE SERUM 3.2 mg/dL (0.6-1.4); GLOM FILT RATE Estimated 25.7 mL/min (>60); POTASSIUM 4.3 mmol/L (3.5-5.1)
[2016-09-08 23:13] LABS: CREATININE,RANDOM URINE 94 mg/dL; SODIUM URINE RANDOM 37 mmol/L
[2016-09-09 03:16] LABS: BASOPHIL% 0.4 % (0-2.5); EOSINOPHIL# 0.1 X10e3 (0-0.7); EOSINOPHIL% 3.4 % (0.0-7.0); HEMATOCRIT 33.4 % (38.0-50.0); HEMOGLOBIN 10.1 gm/dL (13.0-16.0); LYMPHOCYTE% 23.4 % (17.0-45.0); MEAN CELL VOLUME 83.1 FL (83-96); MEAN CORPUSCULAR HEMOGLOBIN 25.2 PG (28-34); MEAN CORPUSCULAR HGB CONC 30.3 g/dL (30-36); MEAN PLATELET VOLUME 10.2 FL (6.5-11.5); MONOCYTE# 0.3 X10e3 (0-1.0); MONOCYTE% 7.9 % (3.0-12.0); NEUTROPHIL# 2.7 X10e3 (1.5-7.1); NEUTROPHIL% 64.9 % (40-75); PLATELET COUNT 151 X10e3 (140-420); RED BLOOD COUNT 4.01 X10e (3.90-5.60); RED CELL DISTRIBUTION WIDTH 22.1 % (11.0-15.5); WHITE BLOOD COUNT 4.1 X10e3 (4.0-10.5)
[2016-09-09 03:19] LABS: DIFF IND NO
[2016-09-09 03:26] LABS: CK TOTAL 44 IU/L (36-174)
[2016-09-09 04:54] LABS: ALBUMIN SERUM 2.7 g/dL (3.5-5.0); BILIRUBIN,TOTAL 0.7 mg/dL (0.2-2.0); BUN/CREATININE RATIO 23.54; CREATININE SERUM 3.1 mg/dL (0.6-1.4); GLOM FILT RATE Estimated 26.7 mL/min (>60); POTASSIUM 4.3 mmol/L (3.5-5.1); PROTEIN TOTAL SERUM 7.4 g/dL (6.0-8.3)
[2016-09-09] MEDS ORDERED: RAPAFLO8 MG PEG (06:39)
[2016-09-09] MEDS ORDERED: OSMOLITE237 ML PEG (06:39)
[2016-09-09] MEDS ORDERED: ASPIRIN81 MG PEG (06:40)
[2016-09-09] MEDS ORDERED: CLOPIDOGREL BIS75 MG PEG (06:41)
[2016-09-09] MEDS ORDERED: FERROUS GLUCON324 MG PEG (06:41)
[2016-09-09] MEDS ORDERED: HYDRALAZINE HCL25 MG PEG (06:42)
[2016-09-09] MEDS ORDERED: FAMOTIDINE10 MG PEG (06:42)
[2016-09-09] MEDS ORDERED: NOVOLOG100 U/M1 SUBQ (06:44)
[2016-09-09] MEDS ORDERED: LEVEMIR100 UNITS/ SUBQ (06:45)
[2016-09-09 10:20] LABS: LEGIONELLA AG URINE NEG (NEG)
[2016-09-10 04:05] LABS: BASOPHIL% 0.2 % (0-2.5); EOSINOPHIL# 0.1 X10e3 (0-0.7); EOSINOPHIL% 2.1 % (0.0-7.0); HEMATOCRIT 31.8 % (38.0-50.0); LYMPHOCYTE% 21.5 % (17.0-45.0); MEAN CORPUSCULAR HEMOGLOBIN 24.7 PG (28-34); MEAN CORPUSCULAR HGB CONC 30.9 g/dL (30-36); MEAN PLATELET VOLUME 9.7 FL (6.5-11.5); MONOCYTE# 0.6 X10e3 (0-1.0); MONOCYTE% 12.5 % (3.0-12.0); NEUTROPHIL% 63.7 % (40-75); PLATELET COUNT 128 X10e3 (140-420); RED BLOOD COUNT 3.99 X10e (3.90-5.60); WHITE BLOOD COUNT 4.8 X10e3 (4.0-10.5)
[2016-09-10 04:06] LABS: MEAN CELL VOLUME 79.8 FL (83-96)
[2016-09-10 04:07] LABS: DIFF IND NO; HEMOGLOBIN 9.9 gm/dL (13.0-16.0)
[2016-09-10 04:22] LABS: ALBUMIN SERUM 2.4 g/dL (3.5-5.0); BILIRUBIN,TOTAL 0.8 mg/dL (0.2-2.0); BUN/CREATININE RATIO 18.66; CALCIUM SERUM 8.7 mg/dL (8.4-10.2); GLOM FILT RATE Estimated 27.7 mL/min (>60); MAGNESIUM 2.3 mg/dL (1.6-3.0); PHOSPHOROUS 3.2 mg/dL (2.5-4.6); POTASSIUM 3.4 mmol/L (3.5-5.1); PROTEIN TOTAL SERUM 6.8 g/dL (6.0-8.3)
[2016-09-11 03:19] LABS: HEMATOCRIT 29.1 % (38.0-50.0); HEMOGLOBIN 9.1 gm/dL (13.0-16.0); MEAN CELL VOLUME 79.9 FL (83-96); MEAN CORPUSCULAR HGB CONC 31.3 g/dL (30-36); RED BLOOD COUNT 3.64 X10e (3.90-5.60); RED CELL DISTRIBUTION WIDTH 21.7 % (11.0-15.5); WHITE BLOOD COUNT 5.6 X10e3 (4.0-10.5)
[2016-09-11 03:34] LABS: BUN/CREATININE RATIO 17.03; CALCIUM SERUM 8.3 mg/dL (8.4-10.2); CREATININE SERUM 2.7 mg/dL (0.6-1.4); GLOM FILT RATE Estimated 31.3 mL/min (>60); MAGNESIUM 1.9 mg/dL (1.6-3.0); POTASSIUM 4.2 mmol/L (3.5-5.1)
[2016-09-12 03:07] LABS: HEMATOCRIT 30.9 % (38.0-50.0); HEMOGLOBIN 9.5 gm/dL (13.0-16.0); MEAN CORPUSCULAR HEMOGLOBIN 24.8 PG (28-34); MEAN CORPUSCULAR HGB CONC 30.9 g/dL (30-36); MEAN PLATELET VOLUME 9.9 FL (6.5-11.5); RED BLOOD COUNT 3.86 X10e (3.90-5.60); RED CELL DISTRIBUTION WIDTH 21.3 % (11.0-15.5); WHITE BLOOD COUNT 5.3 X10e3 (4.0-10.5)
[2016-09-12 03:34] LABS: BUN/CREATININE RATIO 13.46; CALCIUM SERUM 8.3 mg/dL (8.4-10.2); CREATININE SERUM 2.6 mg/dL (0.6-1.4); GLOM FILT RATE Estimated 32.7 mL/min (>60); MAGNESIUM 1.9 mg/dL (1.6-3.0); PHOSPHOROUS 3.8 mg/dL (2.5-4.6); POTASSIUM 3.8 mmol/L (3.5-5.1)
[2016-09-12 19:35] LABS: URINE APPEARANCE TURBID; URINE BILIRUBIN NEG (NEG); URINE BLOOD 1+ (NEG); URINE COLOR YELLOW; URINE GLUCOSE 250 MG/DL (NEG); URINE KETONE NEG (NEG); URINE LEUKOCYTE ESTERASE 2+ (NEG); URINE NITRATE NEG (NEG); URINE PROTEIN 2+ (NEG); URINE SPECIFIC GRAVITY 1.016 (1.003-1.035); URINE UROBILINOGEN 0.2 MG/DL (NEG)
[2016-09-12 19:37] LABS: URINE BACTERIA AUWI NEG (NEGATIVE); URINE SQUAMOUS EPITHELIAL CELL NONE SEEN /[HPF]; UWBCS1 AUWI 100-200 (0-5)
[2016-09-12 19:42] LABS: U HYALINE CASTS AUWI 0-2 /[LPF]
[2016-09-12 19:43] LABS: URINE YEAST PRESENT
[2016-09-12 20:00] LABS: URINE CRYSTALS OTHER /[HPF]
[2016-09-13 03:51] LABS: BASOPHIL% 0.2 % (0-2.5); DIFF IND NO; EOSINOPHIL# 0.1 X10e3 (0-0.7); EOSINOPHIL% 1.8 % (0.0-7.0); HEMATOCRIT 28.9 % (38.0-50.0); LYMPHOCYTE# 0.9 X10e3 (1.0-3.5); MEAN CELL VOLUME 80.6 FL (83-96); MEAN CORPUSCULAR HEMOGLOBIN 25.1 PG (28-34); MEAN CORPUSCULAR HGB CONC 31.1 g/dL (30-36); MEAN PLATELET VOLUME 10.5 FL (6.5-11.5); MONOCYTE# 0.7 X10e3 (0-1.0); MONOCYTE% 17.4 % (3.0-12.0); NEUTROPHIL# 2.4 X10e3 (1.5-7.1); NEUTROPHIL% 58.6 % (40-75); PLATELET COUNT 83 X10e3 (140-420); RED BLOOD COUNT 3.59 X10e (3.90-5.60); RED CELL DISTRIBUTION WIDTH 21.5 % (11.0-15.5); WHITE BLOOD COUNT 4.1 X10e3 (4.0-10.5)
[2016-09-13 04:16] LABS: BUN/CREATININE RATIO 12.91; CALCIUM SERUM 8.7 mg/dL (8.4-10.2); CREATININE SERUM 2.4 mg/dL (0.6-1.4); GLOM FILT RATE Estimated 35.8 mL/min (>60); MAGNESIUM 1.7 mg/dL (1.6-3.0); POTASSIUM 3.5 mmol/L (3.5-5.1)
[2016-09-14 03:49] LABS: HEMOGLOBIN 9.2 gm/dL (13.0-16.0); MEAN CELL VOLUME 81.7 FL (83-96); MEAN CORPUSCULAR HGB CONC 30.6 g/dL (30-36); MEAN PLATELET VOLUME 10.6 FL (6.5-11.5); RED BLOOD COUNT 3.67 X10e (3.90-5.60); RED CELL DISTRIBUTION WIDTH 21.3 % (11.0-15.5)
[2016-09-14 04:17] LABS: CALCIUM SERUM 8.7 mg/dL (8.4-10.2); CREATININE SERUM 2.5 mg/dL (0.6-1.4); GLOM FILT RATE Estimated 34.2 mL/min (>60); POTASSIUM 3.9 mmol/L (3.5-5.1)
[2016-10-27] MEDS ORDERED: [UNRECOGNIZED DRUG - OTHER] (15:47)
[2016-10-27] MEDS ORDERED: APRESOLINE GT (15:48)
[2016-10-27] MEDS ORDERED: ZOLOFT50 MG PO (15:49)
[2016-10-27] MEDS ORDERED: FLORASTORKIDS250 MG GT (15:50)
[2016-10-27] MEDS ORDERED: PROMOD946 ML GT (15:51)
[2016-10-27] MEDS ORDERED: ZOFRAN GT (15:52)
== END 2016-09-14 12:51 | DRG 682 ==
LOC: CED 16:19 → CEDOF 17:40 → C4C 09-09 01:13 → CEDOF 09-09 20:39 → C4C 09-09 20:41
PROVIDERS: Emergency Medicine; Family Medicine; Internal Medicine Nephrology; Physician Assistant Medical
DX: N17.9 Acute kidney failure, unspecified (principal); G92 Toxic encephalopathy; E43 Unspecified severe protein-calorie malnutrition; E87.0 Hyperosmolality and hypernatremia; E87.2 Acidosis; T68.XXXA Hypothermia, initial encounter; E86.0 Dehydration; B37.49 Other urogenital candidiasis; I69.351 Hemiplegia and hemiparesis following cerebral infarction affecting right dominant side; Z68.1 Body mass index [BMI] 19.9 or less, adult; N18.3 Chronic kidney disease, stage 3 (moderate); E11.22 Type 2 diabetes mellitus with diabetic chronic kidney disease; I12.9 Hypertensive chronic kidney disease with stage 1 through stage 4 chronic kidney disease, or unspecified chronic kidney disease; I69.920 Aphasia following unspecified cerebrovascular disease; E78.5 Hyperlipidemia, unspecified; D64.89 Other specified anemias; K21.9 Gastro-esophageal reflux disease without esophagitis; Z79.82 Long term (current) use of aspirin; Z89.511 Acquired absence of right leg below knee; D63.1 Anemia in chronic kidney disease; Z79.4 Long term (current) use of insulin; Z86.14 Personal history of Methicillin resistant Staphylococcus aureus infection
CPT/HCPCS: 36415; 36600; 51702; 70450; 71010; 76770; 80048; 80053; 80076; 80200; 80202; 81003; 82308; 82550; 82570; 82803; 82947; 83605; 83735; 84100; 84300; 84484; 85025; 85027; 85610; 85730; 87040; 87086; 87449; 87899; 89190; 93005; 96365; 99285; J1450; J1630; J1815; J2543; J3260; J3370; J7060

== ENCOUNTER 2016-09-24 22:53 | Inpatient (IN) | payer OTHER ==
--- NOTE | ~2016-09-24 | CO ---
Unit #: [id number] #: [id number] Patient: MANDY MADRID [id number] [address] [address] [id number] I MR#: [id number] NAME: MANDY MADRID ROOM: 571 Age: 61 Sex: M Admission Date: 09/25/2016 : 1955 Attending Physician: Massiel Demarco M.D. Primary Care Physician: Channing Smith M.D. Consultation Date: 10/01/2016 CONSULTATION REPORT REFERRING PHYSICIAN Dr. Massiel Demarco. REASON FOR CONSULTATION Poor tolerance of feeding. HISTORY OF PRESENT ILLNESS Mr. Madrid is a 61-year-old gentleman with multiple medical problems including history of stroke and diabetes. He had significant dysphagia, recurrent aspiration pneumonitis, and had a feeding tube placed in August. Currently, he is admitted with pneumonia and worsening renal function. He has been poorly tolerating his tube feedings and has been having very high residuals. There have been no episodes of nausea, vomiting. There is no leakage around the G tube. Bowel movements, he has significant diarrhea and was actually tested positive for Clostridium difficile. PAST MEDICAL HISTORY As above. Also, history of hypertension, chronic anemia, peripheral vascular disease, and MRSA. MEDICATIONS 1. Hydralazine. 2. Aspirin. 3. Plavix. 4. Folic acid. 5. Rapaflo. 6. Iron. 7. Pepcid. 8. Insulin. ALLERGIES Lactulose. FAMILY HISTORY Noncontributory. SOCIAL HISTORY Currently a senior living resident, nonsmoker, nonalcoholic. REVIEW OF SYSTEMS Unable to obtain. PHYSICAL EXAMINATION Unit #: [id number] #: [id number] Patient: MANDY MADRID VITAL SIGNS: Stable. Temperature 98, pulse 53, respirations 16, blood pressure 135/82. HEENT: Pupils equal and reactive. Sclerae anicteric. Oral mucosa moist. NECK: No JVD. No lymphadenopathy. CHEST: Few scattered rhonchi. CARDIOVASCULAR: Regular rate and rhythm. No murmurs. ABDOMEN: G tube in place, easily mobile. Ostomy site looks good. Abdomen soft, nontender, nondistended, and benign. EXTREMITIES: Without clubbing, cyanosis, or edema. NEUROLOGIC: Deferred. DIAGNOSTIC STUDIES LABORATORY: Chemistries show BUN and creatinine 44 and 3.7. Albumin 2.4. LFTs are normal. CBC shows a hemoglobin of 8.7, MCV of 79, platelet count 316,000, white count 3.9. ASSESSMENT AND PLAN 1. The patient with poorly tolerant of higher volumes of feeding tube formula, most likely gastroparesis, already given has history of diabetes. I will recommend continuing on 40 mL an hour along with what he has already been started on 5 mg of Reglan. Long-term Reglan will be not recommended. We will try also to see if there is any more concentrated formula that can be used to provide him with adequate coverage and nutrition. Will keep his head propped up at 45 degrees all the time. 2. Clostridium difficile colitis: Treatment with Flagyl already in progress. 3. Anemia, microcytic, multifactorial: Most likely related to chronic renal disease. Recent esophagogastroduodenoscopy did show gastric and duodenal ulcer. He is on Pepcid already. He is not a good candidate for a colonoscopy evaluation. 4. Cerebrovascular accident. 5. Diabetes mellitus on insulin. 6. Aphasic from previous stroke. Thank you, Dr. Palmer, for this interesting consult. Will follow along. Dictated by... Ry Reeves M.D. DARYN/callie TD: 10/01/2016 09:42 JOB #: [id number] CONSULTATION REPORT Page 1 of 1 X Ry Reeves MD X CONSULTATION REPORT
--- NOTE | ~2016-09-24 | CR72 ---
[facility] A Service of [facility] & [facility] RADIOLOGY TEXT RESULTS PATIENT: MANDY MADRID LOCATION: [facility]-09 : 59 UNIT #: [id number] AGE: [address]: Massiel Demarco MD SEX: M ORDER DR: [id number] [facility] [address] [place], [place] [address] [id number] I MR#: [id number] Acc #: [id number] NAME: MANDY MADRID : 1955 SEX: M STUDY DATE/TIME: 09/24/2016 23:06 UNIT: [facility] ROOM: 31412 STUDY DESCRIPTION: CR Chest Single View Portable Attending Physician: Afia Morel M.D. Ordering Physician: Dallas Blackmon D.O. Primary Care Physician: Channing Smith M.D. MEDICAL IMAGING REPORT This report is preliminary unless electronic signature is present EXAM Chest x-ray 09/24/2016 HISTORY 61-year-old male in the ED with new onset mental status changes beginning earlier today. History of diabetes. Weakness. TECHNIQUE AP portable supine chest x-ray. FINDINGS The lungs are expanded and clear. No visible pulmonary infiltrate or pleural effusion. Heart size and pulmonary vascularity are normal. IMPRESSION Negative chest. The lungs appear clear. Dictated by... Maldonado Ortega M.D. THIS IS AN ELECTRONICALLY VERIFIED REPORT Maldonado Ortega M.D. at 09/25/2016 9:53 PM MAURICIO/galina TD: 09/25/2016 06:44 JOB #: [id number] MEDICAL IMAGING REPORT Page 1 of 1 COPY
--- NOTE | ~2016-09-24 | CT71 ---
[facility] A Service of [facility] RADIOLOGY TEXT RESULTS PATIENT: MANDY MADRID LOCATION: [facility]2-09 : 59 UNIT #: [id number] AGE: [address]: Massiel Demarco MD SEX: M ORDER DR: [id number] [facility] [address]. [place], [place] [address] [id number] I MR#: [id number] Acc #: [id number] NAME: MANDY MADRID : 1955 SEX: M STUDY DATE/TIME: 09/25/2016 2:44 UNIT: [facility] ROOM: 60392 STUDY DESCRIPTION: CT Head Wo Contrast Attending Physician: Massiel Demarco M.D. Ordering Physician: Dallas Blackmon D.O. Primary Care Physician: Channing Smith M.D. MEDICAL IMAGING REPORT This report is preliminary unless electronic signature is present EXAM CT head, noncontrast, 09/25/2016 HISTORY 61-year-old male in the ED with worsening mental status changes. Lethargy, confusion, altered level of consciousness. This has reportedly been present for years but has acutely worsened. TECHNIQUE CT examination of the head was performed without IV contrast. Portions of the exam were repeated due to motion artifact, and both sets of images are reviewed. This CT exam was performed with one or more of the following radiation dose reduction techniques: automatic exposure control, adjustment of mA and/or kV according to patient size, and iterative reconstruction. COMPARISON CT head, 09/08/2016 FINDINGS No acute intracranial abnormality is visible. There is a large region of chronic encephalomalacia in the left cerebral hemisphere involving frontal, temporal and parietal lobes in both the KEVIN and MCA territories. This could be due to old trauma or more likely infarct. These findings are unchanged since the previous study. Generalized cerebral and cerebellar atrophy is also unchanged. No evidence of intracranial hemorrhage, mass, mass effect, acute cerebral edema or progressive ventricular enlargement. IMPRESSION 1. No acute intracranial abnormality is identified. [facility] A Service [facility] RADIOLOGY TEXT RESULTS PATIENT: MANDY MADRID LOCATION: [facility] : 59 UNIT #: [id number] AGE: [address]: Massiel Demarco MD SEX: M ORDER DR: 2. Extensive chronic encephalomalacia within the left cerebral hemisphere involving frontal, temporal and parietal lobes in both the KEVIN and MCA territories. This is most likely related to old infarct, but may be related to old traumatic injury. This is stable since 09/08/2016. 3. Diffuse atrophy and diffuse chronic low-attenuation white matter changes, also stable since the prior exam. Dictated by... Maldonado Ortega M.D. THIS IS AN ELECTRONICALLY VERIFIED REPORT Maldonado Ortega M.D. at 09/25/2016 9:54 PM Arthur TD: 09/25/2016 07:56 JOB #: [id number] MEDICAL IMAGING REPORT Page 1 of 1 COPY
--- NOTE | ~2016-09-24 | US77 ---
[facility] A Service of [facility] RADIOLOGY TEXT RESULTS PATIENT: MANDY MADRID LOCATION: [facility]09 : 59 UNIT #: [id number] AGE: [address]: Massiel Demarco MD SEX: M ORDER DR: [id number] [place] [id number] [facility]. [place], [place] [address] [id number] I MR#: [id number] Acc #: [id number] NAME: MANDY MADRID : 1955 SEX: M STUDY DATE/TIME: 09/25/2016 8:19 UNIT: [facility] ROOM: 564[address] STUDY DESCRIPTION: US Kidney Bilateral Complete Attending Physician: Massiel Demarco M.D. Ordering Physician: Afia Morel M.D. Primary Care Physician: Channing Smith M.D. MEDICAL IMAGING REPORT This report is preliminary unless electronic signature is present EXAM Renal ultrasound INDICATION Acute renal failure TECHNIQUE Kay-scale and color Doppler sonographic images were obtained through the kidneys and bladder. FINDINGS The kidneys are normal in size bilaterally. However as has been discussed on prior examinations, they do appear echogenic which can be seen in the setting of chronic medical renal disease. No solid or cystic renal masses are seen and there is no hydronephrosis. Patient does appear to have a stone within the lower pole of the left kidney. This measures up to about 4.0-5.0 mm. Bladder is not accurately assessed secondary to decompression of the Jane catheter. IMPRESSION 1. Bilateral echogenic kidneys which can be seen in the setting of chronic medical renal disease. Similar findings were present on most recent renal ultrasound from September 08. 2. Nonobstructing left renal stone. 3. Bladder cannot be fully assessed as it is decompressed by a Jane catheter. Dictated by... Laisha Mcmahon M.D. THIS IS AN ELECTRONICALLY VERIFIED REPORT Laisha Mcmahon M.D. at 09/25/2016 4:37 PM DELORES/jw [facility] A Service of [facility] & [facility] RADIOLOGY TEXT RESULTS PATIENT: MANDY MADRID LOCATION: [facility]09 : 59 UNIT #: [id number] AGE: [address]: Massiel Demarco MD SEX: M ORDER DR: TD: 09/25/2016 10:41 JOB #: [id number] MEDICAL IMAGING REPORT Page 1 of 1 COPY
--- NOTE | ~2016-09-24 | HP ---
Unit #: [id number] #: [id number] Patient: MANDY MADRID [id number] [address] [address] [id number] I MR#: [id number] NAME: MANDY MADRID ROOM: 89[address] Age: 61 Sex: M Admission Date: 09/25/2016 : 1955 Attending Physician: Afia Morel M.D. Primary Care Physician: Channing Smith M.D. HISTORY AND PHYSICAL CHIEF COMPLAINT Toxic metabolic encephalopathy, acute on chronic kidney disease, possible urinary tract infection. HISTORY This unfortunate 61-year-old male with hypertension, IDDM, left hemispheric CVA, is admitted for lethargy. The patient lives at [facility]. He has been admitted multiple times to this facility for lethargy related to toxic metabolic encephalopathy on top of his vascular dementia. He has also been admitted in the past for aspiration pneumonia and acute on chronic kidney disease. Last admission was 09/08/2016 through 09/14/2016 when he presented with hypothermia, acute on chronic kidney disease and a yeast UTI. [facility] was noted to be more lethargic. He was sent to this emergency department late last evening with stable vital signs, except for bradycardia. He was quite lethargic on exam but currently is improving after IV fluids. He does have a chronic Jane catheter in place is draining very little urine. His current serum glucose is 500 with a BUN of 92 and creatinine of 8, up from a BUN of 30, creatinine 2.5 ten days ago. As an aside, the patient has been experiencing watery diarrhea. PAST MEDICAL HISTORY 1. 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 2. IDDM with previous admissions for hypoglycemia and uncontrolled diabetes mellitus. 3. Hypernatremia in the past. 4. Hypertension. 5. GERD with EGD with 05/2016 revealing gastritis. 6. Hyperlipidemia. 7. Anemia likely multifactorial secondary to iron deficiency and chronic kidney disease. 8. Chronic kidney disease with previous BUN 30, creatinine 2.5, 09/14/2016. 9. Chronic pyuria with yeast and growing in cultures in the past. 10. Admissions in the past for aspirin pneumonia and hospital acquired pneumonia. 11. Right BKA for osteomyelitis with positive cultures for proteus and Citrobacter for which the patient has completed antibiotics. 12. History of MRSA pneumonia. ALLERGIES Unit #: [id number] #: [id number] Patient: MANDY MADRID. SKILLED NURSING MEDICATIONS Hydralazine 50 mg t.i.d.; Osmolite 1.5 cans bolus feeding five times daily with 125 mL of water before and after feeding; aspirin 81 mg daily; Plavix 75 mg daily; folic acid 1 mg daily; Rapaflo 8 mg daily; iron sulfate 324 mg daily; Pepcid 20 mg b.i.d.; low dose sliding scale NovoLog; Levemir 5 units subcu q.h.s. Chronic Jane catheter. FAMILY HISTORY Unknown. SOCIAL HISTORY The lives at [facility] under the care of Dr. Smith. Currently does not smoke or drink alcohol. REVIEW OF SYSTEMS Impossible to obtain as patient is essentially nonverbal. PHYSICAL EXAMINATION GENERAL: Cachectic, 61-year-old male, chronically ill-appearing, currently in no acute distress. Does open his eyes. VITAL SIGNS: Temperature 97.7, pulse 53, respirations 11, blood pressure 127/85, O2 saturation 100% on room air. HEENT: Eyes - PERRLA. Extraocular muscles are intact. Pharynx - dry mucosal membranes. NECK: Supple without adenopathy or thyromegaly. CHEST: Clear. CARDIAC: Normal S1 and S2 without S3, S4 or murmur. ABDOMEN: Bowel sounds are present. There is a PEG tube in the upper abdomen, nontender. No definite hepatosplenomegaly or masses. EXTREMITIES: Right BKA, clean dry stump. Left leg without edema. Pulses markedly diminished. NEUROLOGIC: Patient does open his eyes. He is nonverbal, he moves his right side. He has right arm spasticity and flexion contractions secondary to his previous CVA. DIAGNOSTIC STUDIES ADMISSION LABS: Hematocrit 30, which is stable. Normal white count, platelet count is 91 also stable. SMA 12 glucose 503, BUN 92, creatinine 8, sodium is 142 which corrects to more like 148, chloride 114, CO2 13, protein 9, albumin 3.1. Ammonia level 19. Lactic acid normal. Salicylate, acetaminophen is negative. Negative cardiac markers. Negative urine tox screen. Urinalysis - positive leukocyte esterase, 3+ protein, 5-10 red cells, enumerable white cells, 1+ bacteria, yeast are present. IMAGING STUDIES: Chest x-ray - no acute disease. CARDIOLOGY STUDIES: EKG - sinus bradycardia rate 51. ASSESSMENT 1. Lethargy, likely combination of toxic metabolic encephalopathy with underlying vascular dementia. 2. Acute and chronic kidney disease with metabolic acidosis. 3. Possible UTI with chronic Jane catheter in place. Patient has yeast and bacteria noted. Unit #: [id number] #: [id number] Patient: MANDY MADRID 4. [facility]. 5. Prior left hemispheric CVA with right hemiplegia, expressive aphasia, dysphagia with PEG tube in place. 6. Right BKA. 7. History of MRSA. 8. Uncontrolled IDDM. 9. Essential hypertension. 10. Anemia, multifactorial. 11. Chronic pyuria. 12. Sinus bradycardia. PLANS 1. IV fluids with bicarb. 2. Change Jane catheter, check renal ultrasound. 3. Rocephin pending cultures. 4. May need a nephrology consultation. 5. Will also write for Diflucan. 6. Stool cultures and start Florastor. If stool cultures are positive will treat accordingly. 7. Glucose control. 8. SCDs for DVT prophylaxis. 9. Long-term prognosis is poor. Dictated by Afia Morel M.D. AML/ts TD: 09/25/2016 07:38 JOB #: [id number] HISTORY AND PHYSICAL Page 1 of 1 X Afia Morel MD X HISTORY AND PHYSICAL
--- NOTE | ~2016-09-24 | CR72 ---
[facility] A Service of [facility] & [facility] RADIOLOGY TEXT RESULTS PATIENT: MANDY MADRID LOCATION: [facility] [id number] : [birth year] UNIT #: [id number] AGE: [address]: Massiel Demarco MD SEX: M ORDER DR: [id number] [facility] [address] [facility] [place], [place] [address] [id number] MR#: [id number] #: [id number] NAME: MANDY MADRID : 1955 SEX: M STUDY DATE/TIME: 09/30/2016 11:34 UNIT: [facility] ROOM: [facility] STUDY DESCRIPTION: CR Chest Single View Portable Attending Physician: Massiel Demarco M.D. Ordering Physician: Massiel Demarco M.D. Primary Care Physician: Channing Smith M.D. MEDICAL IMAGING REPORT This report is preliminary unless electronic signature is present EXAM Portable chest. HISTORY 61-year-old male; altered mental status, weakness, shortness of air since 09/24/2016. Diabetic. COMPARISON 09/26/2016 FINDINGS Portable view of the chest demonstrates moderate lung volumes. No infiltrates or effusions. Mild cardiomegaly. Mediastinum and great vessels, both unremarkable. No pneumothorax. Dictated by... Danis Lewis M.D. THIS IS AN ELECTRONICALLY VERIFIED REPORT Danis Lewis M.D. at 10/01/2016 12:27 PM Devante TD: 09/30/2016 14:01 JOB #: [id number] MEDICAL IMAGING REPORT Page 1 of 1 COPY
--- NOTE | ~2016-09-24 | A ---
[facility] Nutrition Therapy DATE: 09/26/16 Patient: MANDY MADRID Physician: MARIIA Address: [facility] Room/Bed: [address], Zip: [place] [address] Admit Date: 09/25/16 Date of : [birth year] Height: Weight: 76 34.5 NUTRITIONAL ASSESSMENT: REASON: PT SEEN FOR 4 NUTRITION RISK PT RE: WEIGHT LOSS + POOR PO INTAKE + PRESSURE ULCER/NON-HEALING WOUND, ALSO CONSULT RECEIVED PT IS 61 Y.O. MALE ADMITTED FOR ACUTE ON CKD, RESP FAILURE, DKA PMH: CVA, DYSPHAGIA S/P PEG PLACEMENT, APHASIA, CONTRACTURES, HTN, DM, (R) AKA, HLD, GERD, CHF, PVD, ASPIRATION PNA Anthropometrics: 5'7" (PER PAST ADMITS), WT: 125# (57 KG), BMI: 19.6, 84%IBW Labs: GLU: 118, BUN: 82, CREAT: 6.5, ALB: 2.3, A1c: 10.1 (REFLECTS POOR GLUCOSE MANAGEMENT), GFR: 9.9 Meds: LEVEMIR, NOVOLOG, PEPCID, ZOFRAN, NACL, KCL I/O & Bowel function: 3241/618 Skin Integrity: (L) HEEL PRESSURE ULCER Estimated Nutrition Needs: 0569-3448 KCAL (30-35 KCAL/KG BW) 68-86 G PRO (1.2-1.5 G PRO/KG BW) FLUIDS CONSISTENT W/KCAL NEEDS OR MANAGE PER MD Assessment: CHART REVIEWED AND EVENTS NOTED. PT SEEN FOR WEIGHT LOSS + PRESSURE ULCER + POOR PO INTAKE. PT NON-VERBAL FROM [facility]. PT NOTES TO HAVE SEVERAL PREVIOUS ADMISSIONS. PER RN AND CHART, PT RECEIVES HOME EN OSMOLITE 1.5 BOLUS FEEDS 5 TIMES DAILY. NO FAMILY IN ROOM AT TIME OF VISIT. RD TO FOLLOW AND MAKE RECOMMENDATIONS. SEE BELOW. OF NOTE, PT'S WEIGHTS HAVE DECLINED. PT WEIGHED ~141# IN JULY 2016. OF NOTE, PT IS LACTOSE-INTOLERANT. GLUCERNA 1.2 SUITABLE FOR BLOOD SUGAR MANAGEMENT AND SUITABLE TO FOR [id number]. Dx: INADEQUATE ORAL INTAKE R/T DYSPHAGIA, PMH AEB PEG TUBE IN PLACE, NEED FOR HOME ALTERNATIVE NUTRITION SUPPORT, LOW BODY WEIGHT NOTED. Intervention: 1. NPO 2. PEG TUBE-HOME ENTERAL NUTRITION SUPPORT 3. RD CONSULT Monitoring, Evaluation and Goals: 1. ENTERAL NUTRITION; PROVIDE ~80-100% ESTIMATED NUTRIENT NEEDS W/NO SIGNS OF INTOLERANCE 2. WEIGHTS; PROMOTE GRADUAL WEIGHT GAIN; PREVENT FURTHER WEIGHT LOSS [facility] Nutrition Therapy DATE: 09/26/16 Patient: MANDY MADRID Physician: MARIIA Address[facility] Room/Bed: [address], Zip: [place] [address] Admit Date: 09/25/16 Date of : 59 Height: Weight: 76 34.5 3. LABS; WNL 4. GI; PROMOTE REGULAR GI FUNCTION MONITOR: -WEIGHTS -TF RATE/RESIDUALS -LABS Recommendations: 1. ONCE MEDICALLY FEASIBLE, BEGIN ALTERNATIVE NUTRITION SUPPORT OF GLUCERNA 1.2 @ 20 ML/HR, ADVANCE 10 ML q 4 HOURS TO 60 ML/HR -PROVIDES 1728 KCAL, 86 G PRO, 1166 ML FREE H20 ADD FREE H20 FLUSHES PER MD 2. ENSURE HOB IS UPRIGHT AT MINIUMIN OF 30-[address] EN ADMINISTR[address] WILL F/U PER PROTOCOL PT IS MODERATELY COMPROMISED Respectfully, JORDY GUADALUPE MS, RD, LD [employer] [facility] [place] [facility] cc: client file
--- NOTE | ~2016-09-24 | CO ---
Unit #: [id number] #: [id number] Patient: MANDY MADRID [id number] [address] [address] [id number] I MR#: [id number] NAME: MANDY MADRID ROOM: [facility] Age: 61 Sex: M Admission Date: 09/25/2016 : 1955 Attending Physician: Massiel Demarco M.D. Primary Care Physician: Channing Smith M.D. Consultation Date: 09/25/2016 CONSULTATION REPORT REASON FOR CONSULTATION Critical care management. CHIEF COMPLAINT Toxic metabolic encephalopathy and urinary tract infection possible. HISTORY OF PRESENT ILLNESS This patient is known to me from previous admission. He has a history of previous stroke and is nonverbal. He presented to the emergency room with worsening mental status. He was lethargic and was given IV fluids. Glucose was 500, BUN was 92, and creatinine was 8. I am seeing the patient at the bedside. He appears to be comfortable. PAST MEDICAL HISTORY 1. Cerebrovascular accident. 2. Diabetes mellitus, insulin dependent. 3. Hyponatremia. 4. Hypertension. 5. Gastroesophageal reflux disease. 6. Anemia. 7. Chronic kidney disease. 8. History of recent pneumonia. 9. Right coyae-igm-kdvr amputation. ALLERGIES LACTULOSE. MEDICATIONS 1. Hydralazine. 2. Osmolite tube feeds. 3. Aspirin. 4. Plavix. 5. Folic acid. 6. Rapaflo. 7. Iron sulfate. 8. Levemir. 9. NovoLog. FAMILY HISTORY Unknown. SOCIAL HISTORY Nonsmoker, no alcohol, and no drug abuse. Unit #: [id number] #: [id number] Patient: MANDY MADRID PHYSICAL EXAMINATION GENERAL: Patient appears to be lethargic. VITAL SIGNS: Temperature 97, pulse 50, respirations 16, blood pressure is 127/85, and oxygen saturation 100% on room air. CARDIOVASCULAR: S1 plus S2. RESPIRATION: Bilateral air entry, bilateral mild rhonchi. GASTROINTESTINAL: Nontender and soft. Bowel sounds positive. EXTREMITIES: Right jwffm-uqw-gxwr amputation. DIAGNOSTIC STUDIES LABORATORY: Blood gas with pH of 7.31, PCO2 of 35, and PO2 of 97. BUN is 93, creatinine 7.5, sodium 147, bicarb 16, and chloride is 118. White count is 7, hemoglobin 9, hematocrit 30, and platelet count is 373,000. IMAGING: Chest x-ray done was negative. CT of the head was also performed and showed no acute abnormality. Kidney ultrasound is pending. ASSESSMENT 1. Altered mental status. 2. Acute renal failure. 3. Uremia. 4. Metabolic acidosis. 5. Hyperglycemia. 6. Rule out sepsis. PLAN Aggressively hydrate the patient and continue empiric antibiotics. Nephrology consultation. Continue oxygen and bronchodilator. GI and DVT prophylaxis. Will continue to follow the patient. Total critical care time is 45 minutes in direct critical care of this patient. Dictated by... Kristine Posadas TD: 09/25/2016 21:50 JOB #: [id number] CONSULTATION REPORT Page 1 of 1 X Courtney Louise MD X CONSULTATION REPORT
--- NOTE | ~2016-09-24 | CR72 ---
[facility] A Service of [facility] & [facility] RADIOLOGY TEXT RESULTS PATIENT: MANDY MADRID LOCATION: [facility] [address] : [birth year] UNIT #: [id number] AGE: [address]: Massiel Demarco MD SEX: M ORDER DR: [id number] [facility] [address] [facility]. [place], [place] [address] [id number] I MR#: [id number] #: [id number] NAME: MANDY MADRID : 1955 SEX: M STUDY DATE/TIME: 09/26/2016 4:51 UNIT: [facility] ROOM: [facility] STUDY DESCRIPTION: CR Chest Single View Portable Attending Physician: Massiel Demarco M.D. Ordering Physician: Courtney Louise M.D. Primary Care Physician: Channing Smith M.D. MEDICAL IMAGING REPORT This report is preliminary unless electronic signature is present EXAM AP portable chest, 09/26/2016 HISTORY 61-year-old male admitted through the ED with mental status changes, weakness. Respiratory failure. TECHNIQUE AP portable chest x-ray. FINDINGS The exam shows no change since yesterday. Heart size and pulmonary vascularity are within normal limits. Shallow lung expansion. The lungs appear clear. No visible pulmonary filtrate or pleural effusion. IMPRESSION No active disease. No change since yesterday. Dictated by... Maldonado Ortega M.D. THIS IS AN ELECTRONICALLY VERIFIED REPORT Maldonado Ortega M.D. at 09/30/2016 5:01 PM Arthur TD: 09/26/2016 08:45 JOB #: [id number] MEDICAL IMAGING REPORT Page 1 of 1 COPY
--- NOTE | ~2016-09-24 | CO ---
Unit #: [id number] #: [id number] Patient: MANDY MADRID [id number] [address] [address] [id number] I MR#: [id number] NAME: MANDY MADRID ROOM: [facility] Age: 61 Sex: M Admission Date: 09/25/2016 : 1955 Attending Physician: Massiel Demarco M.D. Primary Care Physician: Channing Smith M.D. Consultation Date: 09/25/2016 CONSULTATION REPORT NEPHROLOGY CONSULTATION REASON FOR CONSULT Acute on chronic kidney disease. HISTORY OF PRESENT ILLNESS Mr. Madrid is an unfortunate 61-year-old male with a history of hypertension, diabetes and stroke who was admitted again from [facility] for some mental status changes. He was recently here just a few weeks ago for a very similar presentation. We were asked to see again for acute kidney injury. Upon admission, he was suspected to have a urinary tract infection and has been started on antibiotics. He was also thought to be in diabetic ketoacidosis with elevated sugars and has been started on DKA protocol. He does seem to be responding to IV fluids as his creatinine is falling. He is aphasic from the stroke and not able to give any history. He is lethargic. There have been no reports of hematuria. He does not appear to be in any distress nor is he having any shortness of breath. Last admission he was treated for aspiration pneumonia. The patient's overall prognosis would appear to be poor but apparently his sister is still wanting everything done at this time. PAST MEDICAL HISTORY Significant for: 1. History of acute kidney injury and underlying chronic kidney disease. 2. History of stroke. 3. Diabetes. 4. Hypertension. 5. GERD. 6. Hyperlipidemia. 7. Chronic anemia. 8. Aspiration pneumonia. 9. Peripheral vascular disease. 10. MRSA pneumonia. PAST SURGICAL HISTORY 1. Right above the knee amputation. 2. He has had a PEG tube placed. MEDICATIONS half-way meds are: 1. Hydralazine 50 mg t.i.d. 2. Osmolite feeds with water. 3. Aspirin daily. 4. Plavix 75 mg a day. Unit #: [id number] #: [id number] Patient: MANDY MADRID 5. Folic acid 1 mg a day. 6. Rapaflo 8 mg a day. 7. Iron sulfate daily. 8. Pepcid 20 mg twice a day. 9. Sliding scale insulin. 10. Levemir 5 units subcu at bedtime. ALLERGIES He has a coded allergy to lactulose. FAMILY HISTORY Not known and not able to be obtained from the patient. SOCIAL HISTORY He is living at [facility]. There is no tobacco, alcohol or drug use. REVIEW OF SYSTEMS A complete twelve point review of systems was attempted but not able to be obtained secondary to the patient being lethargic and aphasic. PHYSICAL EXAMINATION VITAL SIGNS: The patient is afebrile. Pulse 53, respiratory rate 16, blood pressure 135/82. GENERAL: This is a 61-year-old -[place] male, frail appearing, very lethargic but in no acute distress. HEENT: Head is atraumatic, normocephalic. Eyes show pale conjunctivae. No scleral icterus, no nasal drainage or nosebleed. Oropharynx is dry. NECK: No rigidity, no JVD. HEART: Bradycardic and regular with no significant murmur or rub appreciated. LUNGS: Clear with no wheezing or rhonchi. Breathing is nonlabored. ABDOMEN: Soft with feeding tube in place. Bowel sounds are present. EXTREMITIES: The patient has a right above the knee amputation and a left lower extremity that shows no cyanosis or pitting edema. SKIN: Shows no rashes. GENITOURINARY EXAM: Jane catheter is in place with nonbloody urine. MUSCULOSKELETAL: No appreciable CVA tenderness to palpation. NEUROLOGICAL EXAM: The patient is aphasic. LYMPHATIC EXAM: There is no neck cervical lymphadenopathy. PSYCHIATRIC EXAM: Unable to be obtained. DIAGNOSTIC STUDIES LABORATORY: Beta hydroxybutyrate has come back negative this afternoon. ABG most recently - pH 7.312, pCO2 35, pO2 97, bicarb up to 18. Chemistry this afternoon - sodium 147, potassium 3.7, chloride 118, bicarb 16, glucose 111, BUN 93, creatinine 7.5, phosphorus 5. CBC was remarkable for hemoglobin of 9.3. Blood cultures were negative. Amylase and lipase okay. Lactic acid on admission was 1.2 with a normal ammonia. UA did have numerous white blood cells with bacteria and yeast. Unit #: [id number] #: [id number] Patient: MANDY MADRID Admission chemistry noteworthy for an anion gap of 15 with a bicarb of 13, sugar was 503 and a creatinine was 8. Urine drug screen was negative. Looking back at prior labs at discharge on the 12th of this month, his creatinine was 2.5 and had been close to that for several days so this may very well be his new baseline as prior to that his creatinine looks like it was running in the mid to high 1 range. IMAGING: Kidney ultrasound showed echogenic kidneys, nonobstructing left renal stone. Chest x-ray on admission was negative with clear lungs. ASSESSMENT AND PLAN 1. Acute on chronic kidney disease, likely stage 4 kidney disease at this point: His acute kidney injury looks to be prerenal in nature from elevated sugars and dehydration. His creatinine does seem to be falling with IV fluids which we will continue and recheck blood work in the morning. 2. Diabetic ketoacidosis: He is on protocol with insulin and I will be changing his bicarbonate drip over to non-bicarbonate based fluids. He may still need some sodium bicarbonate through his feeding tube with his renal insufficiency but we will re-evaluate for this in the morning. 3. Hypernatremia: I will be changing his fluids to half normal saline. 4. Questionable urinary tract infection, on antibiotics with final culture pending. 5. History of stroke. 6. History of peripheral vascular disease and amputation. I would like to thank Dr. Morel for this consult and the opportunity to participate in the evaluation and care of Mr. Madrid. Dictated by... Richard Hammer Jr., Glenn. NARA/stephy TD: 09/26/2016 07:30 JOB #: [id number] CONSULTATION REPORT Page 1 of 1 X Richard Hammer MD X CONSULTATION REPORT
--- NOTE | ~2016-09-24 | DS ---
Unit #: [id number] #: [id number] Patient: MANDY MADRID [id number] [address] [address] [id number] I MR#: [id number] NAME: MANDY MADRID ROOM: 571 Age: 61 Sex: M Admission Date: 09/25/2016 : 1955 Discharge Date: 10/02/2016 Attending Physician: Massiel Demarco M.D. Primary Care Physician: Channing Smith M.D. DISCHARGE SUMMARY REASON FOR ADMISSION Lethargy/hypoxic metabolic encephalopathy. 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 The [facility] secondary to mental status change and/or decline. While he was evaluated in the emergency department he was noted to have bradycardia. He was lethargic. His blood glucose was 500. Creatinine was 8. He usual baseline creatinine is closer to 3. Subsequently he was admitted for the same. INITIAL ADMISSION DIAGNOSES 1. Lethargy. 2. Toxic metabolic encephalopathy. 3. CVA induced dementia. 4. Acute on chronic kidney disease. 5. Metabolic acidosis. 6. Possible urinary tract infection. HOSPITAL COURSE Dr. Floerz of nephrology services was consulted, who followed the patient through his hospital course. Eventually his creatinine was improved. On the date of discharge it currently stands at 3.5, which likely represents his baseline. Overall his kidney function has declined significantly. His GFR is close to 20. At one point in time consideration and discussion was initiated for possible fistula and/or dialysis placement. However, the patient carries associated comorbid conditions and overall he is a poor hemodialysis candidate. This was reaffirmed with the patient's sister. In regard to his elevated blood sugar, it was managed appropriately with Levemir as well as sliding scale. Appropriate adjustments will be made at the time of discharge. Please see below for details. In consideration of loose/watery stools, c-diff, specimen was ascertained and it was positive. He was maintained on Flagyl while he was here. It was noted that he did have increased residuals from his tube feeds and, therefore, nutrition services will be evaluating for possible concentrated Unit #: [id number] #: [id number] Patient: MANDY MADRID and/or decreased amount of tube feeds secondary to increased residuals. However, after discussion with Dr. Reeves and appropriate consultation, I stated that even if residuals increase to 200 this would be appropriate in consideration of his overall condition. Overall, his long-term prognosis is dismal/poor. His life expectancy is likely less than six months. Once again it was discussed with the patient's sister and/or [id number] she did not want the patient to become a DNR and she was not interested in comfort care measures. I did once again mention to her that his overall quality of life is quite poor. She is well aware. The patient will be transferred back to [facility] for ongoing care. FINAL DISCHARGE DIAGNOSES 1. Acute on chronic kidney disease. Baseline creatinine approximately 3-3.5. 2. Toxic metabolic encephalopathy, likely multifactorial in origin. 3. Urinary tract infection/yeast on final culture. Appropriately treated per hospital course. 4. Extensive left MCA cerebrovascular accident with resultant chronic right hemiplegia. 5. Extensive aphasia. 6. Chronic dysphagia, requiring PEG tube placement. 7. Insulin dependent diabetes with numerous hospital admissions secondary to hypoglycemia as well as diabetic ketoacidosis. 8. Hypertension. 9. Gastroesophageal reflux disease. 10. Gastritis. 11. Hyperlipidemia. 12. Anemia. Baseline hemoglobin approximately 7.5-8.5. 13. Numerous hospital admissions secondary to aspiration pneumonia. 14. Right rgbvs-rfb-vpur amputation secondary to osteomyelitis. 15. Prior history of MRSA pneumonia. 16. Failure to thrive. 17. Severe malnutrition, likely secondary to decreased protein intake as well as poor overall deconditioning. 18. C-difficile diarrhea. FINAL DISCHARGE MEDICATIONS 1. Rapaflo 8 mg per PEG daily. 2. Hydralazine 75 mg per PEG q.8 h. 3. Levemir 14 units subcutaneous at nighttime. 4. Low-dose sliding scale with insulin. Accu-Cheks q.6 h. 5. Ferrous gluconate 325 mg per PEG daily. 6. Pepcid 20 mg per PEG b.i.d. 7. Probiotic Florastor 250 mg per PEG b.i.d. 8. Aspirin 81 mg per PEG daily. 9. Plavix 75 mg per PEG daily. DISPOSITION Back to [facility]. LONG-TERM PROGNOSIS Poor. Dictated by... Unit #: [id number] #: [id number] Patient: MERCYMANDY M.D. ISN/gz TD: 10/02/2016 10:34 JOB #: [id number] DISCHARGE SUMMARY Page 1 of 1 X Massiel Demarco MD X DISCHARGE SUMMARY
--- NOTE | ~2016-09-24 | FU ---
[facility] Nutrition Therapy DATE: 09/29/16 Patient: MANDY MADRID Physician: MARIIA Address: [facility] Room/Bed: [address] [place] [address], Zip: [place] [address] Admit Date: 09/25/16 Date of : 59 Height: Weight: 83 38 NUTRITION MONITORING/FOLLOW-UP: Reason: TF F/U Anthropometrics: Ht: 5'7" Adm wt: 56.8 kg (125#) BMI: 19.6 Current wt: 83-125# Labs: Cl- 114, BUN 55, Creat 4.6, Ca++ 8.3, A1c 9.7, Lip 17, GFR 15 Meds: NaCl, Levemir, Novolog, Pepcid, Zofran I&O's: 3550/1550, last BM 09/29 Skin: Unstageable ulcer (L heel), small O/A (L outer ankle, LFA), healing CSI (R AKA) Estimated Nutrition Needs: 8702-6998 kcal (30-35 kcal/kg) 68-103 g protein (1.2-1.8 g/kg) Assessment: Chart reviewed, events noted. Pt is receiving Glucerna 1.2 @ 20 mL/hrs. Rate was decreased d/t high residuals. Flushes of 250 mL H2O given q 6 hrs. Per pump history, pt received 27% of volume goal. See recommendations below. Dx: Inadequate oral intake RT dysphagia. PMH AEB tube in place, need for home alternative nutrition support, low body weight noted. -IN PROGRESS -Inadequate enteral nutrition infusion RT intolerance AEB pt receiving 27% of goal volume. -IN PROGRESS Intervention: 1. Enteral nutrition support Monitoring, Evaluation and Goals: 1. Enteral nutrition; provide ~80-100% of estimated nutrition needs 2. Weight; prevent unintentional weight loss 3. Labs; WNL 4. Skin; promote skin healing Recommendations: 1. Recommend to change enteral nutrition support to Glucerna 1.5 @ 15 mL/hr. Increase 10 mL q 6 hrs to goal rate of 50 mL/hr. This will provide 1800 kcal/ 99 g protein/ 912 mL free H2O. Add free H2O flushes 220 mL q 6 hrs. 2. Continue to monitor for signs and symptoms of tube feed intolerance. [facility] Nutrition Therapy DATE: 09/29/16 Patient: MANDY MADRID Physician: MARIIA Address: [facility] Room/Bed: [address] [place] [address], Zip: [place] [address] Admit Date: 09/25/16 Date of : 59 Height: Weight: 83 38 3. Add MVI with mineral daily + 100-200 mg Vitamin C daily to aid in skin healing. Status: Pt is at a moderate nutritional risk. RD will f/u per protocol. Respectfully, Rosanne Marcano, Insurance Attorney Stanley Carolina MS RD, LD Food and Nutritional Services [facility] cc: client file
--- NOTE | ~2016-09-24 | EKG ---
PATIENT: MANDY MADRID UNIT #: [id number] Ventricular Rate: 51 BPM Atrial Rate: 51 BPM P-R Interval: 150 ms QRS Duration: 96 ms Q-T Interval: 496 ms QTC Calculation(Bezet): 457 ms P Hartman: 75 degrees Calculated R Hartman: 50 degrees Calculated T Hartman: 86 degrees Diagnosis Line: Sinus bradycardia Diagnosis Line: Voltage criteria for left ventricular hypertrophy Diagnosis Line: Otherwise normal ECG Diagnosis Line: No previous ECGs available Diagnosis Line: Confirmed by HUGO ROYAL MD ([id number]) on 09/26/2016 Diagnosis Line: 9:33:42 AM INTERPRETING MD: GENNY SHORT
[~2016-09-24 22:53] MED LIST changes: +CLOPIDOGREL BIS75 MG PEG; +FAMOTIDINE10 MG PEG; +FERROUS GLUCON324 MG PEG; +NOVOLOG100 U/M1 SUBQ; +OSMOLITE237 ML PEG; +RAPAFLO8 MG PEG
[2016-09-24 23:57] LABS: POC - CKMB 3.5 ng/mL (0.0-7.9); POC - TROPONIN <0.05 ng/mL (<=0.05)
[2016-09-25] LABS: URINE SOURCE CLEAN CATCH
[2016-09-25 00:05] LABS: URINE APPEARANCE TURBID; URINE BILIRUBIN NEG (NEG); URINE BLOOD 2+ (NEG); URINE COLOR DK YELLOW; URINE GLUCOSE NEG (NEG); URINE KETONE TRACE (NEG); URINE LEUKOCYTE ESTERASE 3+ (NEG); URINE NITRATE NEG (NEG); URINE PROTEIN 3+ (NEG); URINE SPECIFIC GRAVITY 1.021 (1.003-1.035); URINE UROBILINOGEN 0.2 MG/DL (NEG)
[2016-09-25 00:08] LABS: CULTURE INDICATED? YES; URINE BACTERIA AUWI 1+ (NEGATIVE); URINE SQUAMOUS EPITHELIAL CELL NONE SEEN /[HPF]; UWBCS1 AUWI INNUM (0-5)
[2016-09-25 00:10] LABS: URINE YEAST PRESENT
[2016-09-25 00:19] LABS: PARTIAL THROMBOPLASTIN TIME 24.4 SECONDS (23.5-31.3); PROTHROMBIN TIME (PATIENT) 10.5 SECONDS (9.6-11.5)
[2016-09-25 00:20] LABS: ALBUMIN SERUM 3.1 g/dL (3.5-5.0); ALCOHOL BLOOD 5 mg/dL (0); ALKALINE PHOSPHATASE 143 U/L (32-92); ALT (SGPT) 23 U/L (10-40); AST (SGOT) 21 U/L (10-42); BILIRUBIN, DIRECT 0.1 mg/dL (0.0-0.2); BILIRUBIN,INDIRECT 0.4 mg/dL (0.0-0.9); BILIRUBIN,TOTAL 0.5 mg/dL (0.2-2.0); BLOOD UREA NITROGEN 92 mg/dL (9-23); CALCIUM SERUM 9.7 mg/dL (8.4-10.2); CARBON DIOXIDE 13 mmol/L (22-31); CHLORIDE 114 mmol/L (100-111); GLOM FILT RATE Estimated 8.9 mL/min (>60); POTASSIUM 4.7 mmol/L (3.5-5.1); SALICYLATE <4.0 mg/dL; SODIUM 142 mmol/L (135-145)
[2016-09-25 00:21] LABS: ACETAMINOPHEN <10 ug/mL; GLUCOSE FASTING 503 mg/dL (70-110)
[2016-09-25 00:48] LABS: AMPHETAMINE NEG (NEG); BARBITURATES NEG (NEG); BENZODIAZEPINES NEG (NEG); COCAINE NEG (NEG); MARIJUANA NEG (NEG); OPIATES NEG (NEG); TRICYCLIC ANTIDEPRESSANTS NEG (NEG); U METHADONE NEG (NEG)
[2016-09-25 01:19] LABS: ARTERIAL BLD GAS O2 SATURATION 93.9 % (90.0-100.0); ARTERIAL BLOOD GAS CARBOXY HB 0.7 %sat (0.0-9.0); ARTERIAL BLOOD GAS HCO3 13.4 mmol/L; ARTERIAL BLOOD GAS PCO2 36.1 mmHg (35.0-45.0); ARTERIAL BLOOD GAS PO2 85.8 mmHg (80.0-100)
[2016-09-25 01:22] LABS: ARTERIAL BLOOD GAS pH 7.177 (7.350-7.450)
[2016-09-25 01:23] LABS: ARTERIAL BLOOD GAS ALLEN TEST NORMAL; ARTERIAL BLOOD GAS ART SITE LEFT BRACHIAL; ARTERIAL BLOOD GAS DELIVERY ROOM AIR; ARTERIAL DRAW? YES
[2016-09-25 03:30] LABS: BUN/CREATININE RATIO 11.79; CALCIUM SERUM 9.3 mg/dL (8.4-10.2); CREATININE SERUM 7.8 mg/dL (0.6-1.4); GLOM FILT RATE Estimated 9.2 mL/min (>60); POTASSIUM 4.3 mmol/L (3.5-5.1)
[2016-09-25 03:38] LABS: BASOPHIL% 0.3 % (0-2.5); EOSINOPHIL% 0.3 % (0.0-7.0); HEMATOCRIT 35.7 % (38.0-50.0); HEMOGLOBIN 10.6 gm/dL (13.0-16.0); LYMPHOCYTE# 0.9 X10e3 (1.0-3.5); LYMPHOCYTE% 9.8 % (17.0-45.0); MEAN CELL VOLUME 84.2 FL (83-96); MEAN CORPUSCULAR HEMOGLOBIN 24.9 PG (28-34); MEAN CORPUSCULAR HGB CONC 29.6 g/dL (30-36); MEAN PLATELET VOLUME 9.6 FL (6.5-11.5); MONOCYTE# 0.4 X10e3 (0-1.0); NEUTROPHIL# 8.1 X10e3 (1.5-7.1); NEUTROPHIL% 85.6 % (40-75); PLATELET COUNT 413 X10e3 (140-420); RED BLOOD COUNT 4.24 X10e (3.90-5.60); WHITE BLOOD COUNT 9.5 X10e3 (4.0-10.5)
[2016-09-25 04:08] LABS: DIFF IND NO
[2016-09-25 11:08] LABS: AMYLASE 16 U/L (0-46); LIPASE 17 U/L (22-51)
[2016-09-25 13:56] LABS: BASOPHIL% 0.4 % (0-2.5); EOSINOPHIL# 0.1 X10e3 (0-0.7); HEMATOCRIT 30.7 % (38.0-50.0); HEMOGLOBIN 9.3 gm/dL (13.0-16.0); LYMPHOCYTE# 1.1 X10e3 (1.0-3.5)
[2016-09-25 14:00] LABS: LYMPHOCYTE% 15.8 % (17.0-45.0); MEAN CELL VOLUME 81.7 FL (83-96); MEAN CORPUSCULAR HEMOGLOBIN 24.7 PG (28-34); MEAN CORPUSCULAR HGB CONC 30.2 g/dL (30-36); MEAN PLATELET VOLUME 9.1 FL (6.5-11.5); MONOCYTE# 0.7 X10e3 (0-1.0); MONOCYTE% 10.1 % (3.0-12.0); NEUTROPHIL# 5.2 X10e3 (1.5-7.1); NEUTROPHIL% 72.7 % (40-75); PLATELET COUNT 373 X10e3 (140-420); RED BLOOD COUNT 3.76 X10e (3.90-5.60); RED CELL DISTRIBUTION WIDTH 20.8 % (11.0-15.5); WHITE BLOOD COUNT 7.1 X10e3 (4.0-10.5)
[2016-09-25 14:01] LABS: DIFF IND NO
[2016-09-25 14:13] LABS: BUN/CREATININE RATIO 12.4; CALCIUM SERUM 8.9 mg/dL (8.4-10.2); CREATININE SERUM 7.5 mg/dL (0.6-1.4); GLOM FILT RATE Estimated 8.3 mL/min (>60); MAGNESIUM 2.7 mg/dL (1.6-3.0); POTASSIUM 3.7 mmol/L (3.5-5.1)
[2016-09-25 14:36] LABS: ARTERIAL BLOOD GAS CARBOXY HB 0.7 %sat (0.0-9.0); ARTERIAL BLOOD GAS HCO3 17.9 mmol/L; ARTERIAL BLOOD GAS MET HB 0.7 %sat (0.0-2.0); ARTERIAL BLOOD GAS PCO2 35.4 mmHg (35.0-45.0); ARTERIAL BLOOD GAS PO2 97.5 mmHg (80.0-100); ARTERIAL BLOOD GAS pH 7.312 (7.350-7.450)
[2016-09-25 14:37] LABS: ARTERIAL BLOOD GAS ART SITE LEFT BRACHIAL; ARTERIAL BLOOD GAS DELIVERY ROOM AIR; ARTERIAL DRAW? YES
[2016-09-25 20:07] LABS: BUN/CREATININE RATIO 13.04; CALCIUM SERUM 8.8 mg/dL (8.4-10.2); CREATININE SERUM 6.9 mg/dL (0.6-1.4); GLOM FILT RATE Estimated 9.2 mL/min (>60); POTASSIUM 3.9 mmol/L (3.5-5.1)
[2016-09-26 01:50] LABS: BUN/CREATININE RATIO 12.79; CALCIUM SERUM 8.7 mg/dL (8.4-10.2); CREATININE SERUM 6.8 mg/dL (0.6-1.4); GLOM FILT RATE Estimated 9.4 mL/min (>60); PHOSPHOROUS 4.1 mg/dL (2.5-4.6); POTASSIUM 3.3 mmol/L (3.5-5.1)
[2016-09-26 04:24] LABS: ARTERIAL BLD GAS O2 SATURATION 95.2 % (90.0-100.0); ARTERIAL BLOOD GAS CARBOXY HB 1.1 %sat (0.0-9.0); ARTERIAL BLOOD GAS MET HB 0.8 %sat (0.0-2.0); ARTERIAL BLOOD GAS PCO2 36.5 mmHg (35.0-45.0); ARTERIAL BLOOD GAS PO2 88.1 mmHg (80.0-100); ARTERIAL BLOOD GAS pH 7.368 (7.350-7.450)
[2016-09-26 04:27] LABS: ARTERIAL BLOOD GAS ART SITE LEFT BRACHIAL; ARTERIAL BLOOD GAS DELIVERY ROOM AIR; ARTERIAL DRAW? YES
[2016-09-26 05:37] LABS: BASOPHIL% 0.3 % (0-2.5); EOSINOPHIL# 0.2 X10e3 (0-0.7); EOSINOPHIL% 2.7 % (0.0-7.0); HEMATOCRIT 27.9 % (38.0-50.0); HEMOGLOBIN 8.7 gm/dL (13.0-16.0); LYMPHOCYTE# 1.3 X10e3 (1.0-3.5); LYMPHOCYTE% 18.2 % (17.0-45.0); MEAN CELL VOLUME 79.8 FL (83-96); MEAN CORPUSCULAR HEMOGLOBIN 24.8 PG (28-34); MEAN PLATELET VOLUME 9.5 FL (6.5-11.5); MONOCYTE# 0.5 X10e3 (0-1.0); MONOCYTE% 7.3 % (3.0-12.0); NEUTROPHIL# 4.9 X10e3 (1.5-7.1); NEUTROPHIL% 71.5 % (40-75); PLATELET COUNT 388 X10e3 (140-420); RED BLOOD COUNT 3.49 X10e (3.90-5.60); WHITE BLOOD COUNT 6.9 X10e3 (4.0-10.5)
[2016-09-26 05:43] LABS: DIFF IND NO
[2016-09-26 06:18] LABS: ALBUMIN SERUM 2.3 g/dL (3.5-5.0); BILIRUBIN,TOTAL 0.4 mg/dL (0.2-2.0); BUN/CREATININE RATIO 12.61; CALCIUM SERUM 8.8 mg/dL (8.4-10.2); CREATININE SERUM 6.5 mg/dL (0.6-1.4); GLOM FILT RATE Estimated 9.9 mL/min (>60); POTASSIUM 3.7 mmol/L (3.5-5.1); PROTEIN TOTAL SERUM 6.8 g/dL (6.0-8.3)
[2016-09-26 10:21] LABS: BUN/CREATININE RATIO 11.44; CALCIUM SERUM 8.7 mg/dL (8.4-10.2); CREATININE SERUM 6.9 mg/dL (0.6-1.4); GLOM FILT RATE Estimated 9.2 mL/min (>60); POTASSIUM 3.5 mmol/L (3.5-5.1)
[2016-09-27 05:45] LABS: BASOPHIL% 0.5 % (0-2.5); EOSINOPHIL# 0.2 X10e3 (0-0.7); EOSINOPHIL% 3.6 % (0.0-7.0); HEMATOCRIT 28.2 % (38.0-50.0); HEMOGLOBIN 8.5 gm/dL (13.0-16.0); LYMPHOCYTE% 18.7 % (17.0-45.0); MEAN CELL VOLUME 81.8 FL (83-96); MEAN CORPUSCULAR HEMOGLOBIN 24.7 PG (28-34); MEAN CORPUSCULAR HGB CONC 30.2 g/dL (30-36); MEAN PLATELET VOLUME 9.3 FL (6.5-11.5); MONOCYTE# 0.5 X10e3 (0-1.0); MONOCYTE% 9.2 % (3.0-12.0); NEUTROPHIL# 3.5 X10e3 (1.5-7.1); PLATELET COUNT 362 X10e3 (140-420); RED BLOOD COUNT 3.45 X10e (3.90-5.60); RED CELL DISTRIBUTION WIDTH 20.7 % (11.0-15.5); WHITE BLOOD COUNT 5.2 X10e3 (4.0-10.5)
[2016-09-27 05:53] LABS: DIFF IND NO
[2016-09-27 06:42] LABS: ALBUMIN SERUM 2.3 g/dL (3.5-5.0); BILIRUBIN,TOTAL 0.4 mg/dL (0.2-2.0); BUN/CREATININE RATIO 12.66; CALCIUM SERUM 8.8 mg/dL (8.4-10.2); GLOM FILT RATE Estimated 10.9 mL/min (>60); POTASSIUM 3.8 mmol/L (3.5-5.1); PROTEIN TOTAL SERUM 6.6 g/dL (6.0-8.3)
[2016-09-28 09:03] LABS: BASOPHIL% 0.8 % (0-2.5); EOSINOPHIL# 0.2 X10e3 (0-0.7); HEMATOCRIT 28.2 % (38.0-50.0); HEMOGLOBIN 8.5 gm/dL (13.0-16.0); LYMPHOCYTE# 0.9 X10e3 (1.0-3.5); LYMPHOCYTE% 22.2 % (17.0-45.0); MEAN CELL VOLUME 81.4 FL (83-96); MEAN CORPUSCULAR HEMOGLOBIN 24.6 PG (28-34); MEAN CORPUSCULAR HGB CONC 30.2 g/dL (30-36); MONOCYTE# 0.4 X10e3 (0-1.0); MONOCYTE% 9.6 % (3.0-12.0); NEUTROPHIL# 2.5 X10e3 (1.5-7.1); NEUTROPHIL% 63.4 % (40-75); PLATELET COUNT 365 X10e3 (140-420); RED BLOOD COUNT 3.46 X10e (3.90-5.60); WHITE BLOOD COUNT 3.9 X10e3 (4.0-10.5)
[2016-09-28 09:04] LABS: DIFF IND NO
[2016-09-28 09:26] LABS: ALBUMIN SERUM 2.4 g/dL (3.5-5.0); BILIRUBIN,TOTAL 0.5 mg/dL (0.2-2.0); BUN/CREATININE RATIO 11.6; CALCIUM SERUM 8.6 mg/dL (8.4-10.2); CREATININE SERUM 5.6 mg/dL (0.6-1.4); GLOM FILT RATE Estimated 11.8 mL/min (>60); MAGNESIUM 2.2 mg/dL (1.6-3.0); PHOSPHOROUS 4.4 mg/dL (2.5-4.6)
[2016-09-29 10:22] LABS: HEMATOCRIT 27.5 % (38.0-50.0); HEMOGLOBIN 8.6 gm/dL (13.0-16.0); MEAN CELL VOLUME 79.7 FL (83-96); MEAN CORPUSCULAR HEMOGLOBIN 25.1 PG (28-34); MEAN CORPUSCULAR HGB CONC 31.4 g/dL (30-36); MEAN PLATELET VOLUME 8.9 FL (6.5-11.5); RED BLOOD COUNT 3.45 X10e (3.90-5.60); RED CELL DISTRIBUTION WIDTH 20.4 % (11.0-15.5); WHITE BLOOD COUNT 3.2 X10e3 (4.0-10.5)
[2016-09-29 10:48] LABS: BUN/CREATININE RATIO 11.95; CALCIUM SERUM 8.3 mg/dL (8.4-10.2); CREATININE SERUM 4.6 mg/dL (0.6-1.4); POTASSIUM 3.8 mmol/L (3.5-5.1)
[2016-09-30 07:01] LABS: HEMATOCRIT 27.4 % (38.0-50.0); HEMOGLOBIN 8.7 gm/dL (13.0-16.0); MEAN CELL VOLUME 78.8 FL (83-96); MEAN CORPUSCULAR HGB CONC 31.8 g/dL (30-36); MEAN PLATELET VOLUME 8.6 FL (6.5-11.5); RED BLOOD COUNT 3.48 X10e (3.90-5.60); RED CELL DISTRIBUTION WIDTH 20.9 % (11.0-15.5); WHITE BLOOD COUNT 3.3 X10e3 (4.0-10.5)
[2016-09-30 07:40] LABS: BUN/CREATININE RATIO 11.66; CALCIUM SERUM 8.3 mg/dL (8.4-10.2); CREATININE SERUM 4.2 mg/dL (0.6-1.4); GLOM FILT RATE Estimated 16.8 mL/min (>60); MAGNESIUM 1.8 mg/dL (1.6-3.0); PHOSPHOROUS 4.2 mg/dL (2.5-4.6); POTASSIUM 3.6 mmol/L (3.5-5.1)
[2016-10-01 06:23] LABS: HEMATOCRIT 27.6 % (38.0-50.0); HEMOGLOBIN 8.7 gm/dL (13.0-16.0); MEAN CELL VOLUME 79.1 FL (83-96); MEAN CORPUSCULAR HEMOGLOBIN 24.9 PG (28-34); MEAN CORPUSCULAR HGB CONC 31.5 g/dL (30-36); MEAN PLATELET VOLUME 8.3 FL (6.5-11.5); RED BLOOD COUNT 3.49 X10e (3.90-5.60); RED CELL DISTRIBUTION WIDTH 20.8 % (11.0-15.5); WHITE BLOOD COUNT 3.9 X10e3 (4.0-10.5)
[2016-10-01 07:10] LABS: BUN/CREATININE RATIO 11.89; CREATININE SERUM 3.7 mg/dL (0.6-1.4); GLOM FILT RATE Estimated 19.5 mL/min (>60); POTASSIUM 3.7 mmol/L (3.5-5.1)
[2016-10-02 08:04] LABS: BUN/CREATININE RATIO 12.85; CALCIUM SERUM 8.3 mg/dL (8.4-10.2); CREATININE SERUM 3.5 mg/dL (0.6-1.4); GLOM FILT RATE Estimated 20.9 mL/min (>60); POTASSIUM 3.9 mmol/L (3.5-5.1)
[2016-10-27] MEDS ORDERED: [UNRECOGNIZED DRUG - OTHER] (15:47)
[2016-10-27] MEDS ORDERED: APRESOLINE GT (15:48)
[2016-10-27] MEDS ORDERED: ZOLOFT50 MG PO (15:49)
[2016-10-27] MEDS ORDERED: FLORASTORKIDS250 MG GT (15:50)
[2016-10-27] MEDS ORDERED: PROMOD946 ML GT (15:51)
[2016-10-27] MEDS ORDERED: ZOFRAN GT (15:52)
== END 2016-10-02 13:50 | DRG 682 ==
LOC: CED 22:53 → CEDOF 09-25 01:42 → CICCU2 09-25 12:20 → C5C 09-27 10:47
PROVIDERS: Emergency Medicine; Family Medicine; Internal Medicine; Internal Medicine Nephrology; Nurse Practitioner
DX: N17.9 Acute kidney failure, unspecified (principal); E13.10 Other specified diabetes mellitus with ketoacidosis without coma; G92 Toxic encephalopathy; E43 Unspecified severe protein-calorie malnutrition; A04.7 Enterocolitis due to Clostridium difficile; E87.0 Hyperosmolality and hypernatremia; E86.0 Dehydration; I69.359 Hemiplegia and hemiparesis following cerebral infarction affecting unspecified side; B37.49 Other urogenital candidiasis; I12.9 Hypertensive chronic kidney disease with stage 1 through stage 4 chronic kidney disease, or unspecified chronic kidney disease; E11.22 Type 2 diabetes mellitus with diabetic chronic kidney disease; N18.4 Chronic kidney disease, stage 4 (severe); I69.320 Aphasia following cerebral infarction; F03.90 Unspecified dementia, unspecified severity, without behavioral disturbance, psychotic disturbance, mood disturbance, and anxiety; I69.398 Other sequelae of cerebral infarction; R00.1 Bradycardia, unspecified; D64.9 Anemia, unspecified; K29.70 Gastritis, unspecified, without bleeding; K21.9 Gastro-esophageal reflux disease without esophagitis; E78.5 Hyperlipidemia, unspecified; Z89.511 Acquired absence of right leg below knee; Z86.14 Personal history of Methicillin resistant Staphylococcus aureus infection; Z79.82 Long term (current) use of aspirin; Z79.02 Long term (current) use of antithrombotics/antiplatelets; Z79.4 Long term (current) use of insulin
CPT/HCPCS: 36415; 36600; 70450; 71010; 76770; 80048; 80053; 80076; 80202; 80307; 81003; 82010; 82140; 82150; 82553; 82803; 82947; 83036; 83605; 83690; 83735; 84100; 84484; 85025; 85027; 85610; 85730; 87040; 87045; 87086; 87177; 87209; 87427; 87493; 87899; 93005; 96360; 99285; G0480; J0692; J0696; J1650; J1815; J3370; J7060

== ENCOUNTER 2016-10-27 17:07 | Inpatient (IN) | payer OTHER ==
--- NOTE | ~2016-10-27 | A ---
[facility] Nutrition Therapy DATE: 10/28/16 Patient: MANDY MADRID Physician: MARIIA Address: [facility] Room/Bed: [address] [place] [address], Zip: [place] [address] Admit Date: 10/27/16 Date of : [birth year] Height: 8 8 Weight: 103 47 NUTRITIONAL ASSESSMENT: REASON: Low BMI 61 yo male admitted for acute CKD PMH: CVA, dysphagia s/p PEG placement, aphasia, contracture, HTN, DM, CHF, PVD, GERD, HLD, R AKA, CKD Anthropometrics: Ht: 5'2" Wt: 46.8 kg (103#) BMI: 18.9 Labs: Na+ 129, Gluc 299, BUN 104, Creat 3.8, POC 159, GFR 18.9 Meds: Novolog, Zofran, Levemir, Pepcid, NaCl I/O & Bowel function: 900/5, last BM 10/27 x 4 Skin Integrity: Healing CSI (R ankle), wound (L outer ankle/heel), skin tear (L arm), unstageable ulcer (L heel), no edema noted Estimated Nutrition Needs: 2697-3703 kcal (35-40 kcal/kg) 70-94 g protein (1.5-2.0 g/kg) Assessment: Chart reviewed, events noted. Pt was admitted for abnormal lab values and worsening CKD. Per notes, pt has several past admissions. Per previous assessment, pt receives home enternal nutrition bolus feeds of Osmolite 1.5 via PEG. Dx: Underweight RT PMH, clinical condition AEB 18.9 BMI. Intervention: 1. Enteral nutrition 2. Phos level 3. MVI + Vit C Monitoring, Evaluation and Goals: 1. Enteral nutrition; provide >80% of estimated needs and goal volume x 24 hrs 2. Labs; WNL 3. Weight; prevent unintentional weight loss, promote gradual weight gain 4. Skin; promote skin healing Recommendations: 1. Once medically feasible, initiate enteral nutrition with Glucerna 1.2 @ 20 mL/hr, [facility] Nutrition Therapy DATE: 10/28/16 Patient: MANDY MADRID Physician: MARIIA Address: [facility] Room/Bed: [address] [place] [address], Zip: [place] [address] Admit Date: 10/27/16 Date of : 59 Height: 8 8 Weight: 103 47 advance 10 mL q 6 hrs to goal rate of 60 mL/hr. This will provide: 1728 kcal/ 86 g protein/ 1166 mL free H2O. Add free water flushes per MD. 2. Please obtain current Phos level d/t worsening CKD. 3. Consider adding MVI + 100-200 mg Vitamin C daily to promote skin healing. Pt is at a moderate nutritional risk. RD will f/u per protocol. Respectfully, Rosanne Marcano, Senior Java J2Ee Developer Stanley Carolina MS, RD, LD Food and Nutritional Services [facility] cc: client file
--- NOTE | ~2016-10-27 | CO ---
Unit #: [id number] #: [id number] Patient: MANDY MADRID [id number] [address] [place], [place] [address] [id number] I MR#: [id number] NAME: MANDY MADRID ROOM: 571 Age: 61 Sex: M Admission Date: 10/27/2016 : 1955 Attending Physician: Massiel Demarco M.D. Primary Care Physician: Channing Smith M.D. Consultation Date: 10/28/2016 CONSULTATION REPORT REASON FOR CONSULTATION Renal failure. Thank you very much for asking us to see this patient again in consultation. HISTORY OF PRESENT ILLNESS Mr. Raf Madrid is a 61-year-old male, who has multiple medical problems, whom we have seen multiple times in the past, who has underlying chronic kidney disease stage 3 to stage 4 depending on volume status, complications, etc., who has a history of stroke, decreased responsiveness, PEG tube placement, etc., who presented the best I can tell with decreased response from his shelter. The patient was noted to have worsening BUN and creatinine to 103 and 4.2. When he was discharged here several weeks ago, he was at 45 BUN and creatinine of 3.5. Although over the last 2 years, his baseline is really 2+/-, but again he continues to intermittently worsens with different hospitalizations. He was here for his C difficile approximately 1 month ago. He currently is unresponsive. PAST MEDICAL HISTORY History of left MCA CVA with chronic right hemiplegia with aphasia and dysphasia, status post PEG tube placement, history of insulin-dependent diabetes mellitus, history of hypernatremia in the past, history of hypertension, history of gastroesophageal reflux disease, history of gastritis, history of hyperlipidemia, history of anemia, history of again chronic renal disease/acute renal failure, history of chronic pyuria in the past, history of pneumonia, history of a right BKA secondary to osteomyelitis, history of MRSA pneumonia. ALLERGIES Intolerance to lactulose. MEDICATIONS Include at home or shelter include insulin, hydralazine 75 t.i.d., Glytrol one can 6 times a day, Zoloft 50 mg a day, Rapaflo 8 mg a day, iron pill daily, Plavix 75 mg a day, Florastor 250 mg b.i.d., Pepcid 20 mg b.i.d., Zofran, ProMod. SOCIAL Lives at [facility]. No smoking or drinking currently. REVIEW OF SYSTEMS Totally unable to obtain. Unit #: [id number] #: [id number] Patient: MANDY MADRID FAMILY HISTORY Unable to obtain. PHYSICAL EXAMINATION GENERAL: Again, he is unresponsive. VITAL SIGNS: Temperature is 97.4, pulse is 49 to 60, blood pressure of 132 to 146 over 70s to 80s. HEENT: Normocephalic and atraumatic. His pupils appear to be equal and reactive to light. His mouth is dry. No erythema. NECK: Supple. CARDIAC: He is bradycardic without a rub. No S3 or S4. LUNGS: Distant but I do not hear any wheezes or rhonchi. ABDOMEN: Bowel sounds positive. PEG placement. Nontender. EXTREMITIES: He has a right BKA. His left has no lower extremity swelling. SKIN: No acute rashes. NEUROLOGIC: Again very contracted, unable to assess adequately. : Deferred. DIAGNOSTIC STUDIES IMAGING STUDIES: He had a chest x-ray that show just hyperinflation. No infiltrates or effusions. LABORATORY RESULTS: His glucose 185, BUN of 103, creatinine of 4.2, sodium is 131, potassium 5.3, CO2 of 18, calcium 9.7, magnesium is 1.8, phosphorus is 4.2, albumin is 3.2, ammonia 73. INR is 1.0. Hemoglobin 8.8, white count 4700, platelets 346,000. No urine studies were done. ASSESSMENT AND PLAN 1. Acute kidney injury on top of chronic kidney disease. Certainly, the patient is with increased BUN and creatinine again. Again, he probably has a combination of volume depletion versus other. Does not have a Jane catheter. We will probably place a Jane catheter and repeat a renal ultrasound. Continue IV fluids with bicarb. Check labs this morning. Get urine studies and we will continue to follow. Certainly stay away from angiotensin receptor blockers, PPIs, contrast dye, and other nephrotoxins at this time. Certainly, I do not feel the patient is a great dialysis candidate at this time. Even if his renal function worsens, although I have not discussed this with the family. 2. History of Clostridium diff. 3. History of cerebrovascular accident with decreased mental status. 4. History of hypertension. Certainly, his blood pressure medicine he is on hydralazine b.i.d. He is a little bradycardic. His potassium was a little high last night. Certainly, we will wait and see what this morning's electrolytes look like and his potassium last night was 5.3. Dictated by.Kristine Olivier/claudia TD: 10/28/2016 09:24 JOB #: [id number] Unit #: [id number] #: [id number] Patient: MANDY MADRID CONSULTATION REPORT Page 1 of 1 X Beth Florez MD X CONSULTATION REPORT
--- NOTE | ~2016-10-27 | HP ---
Unit #: [id number] #: [id number] Patient: MANDY MADRID [id number] [address] [address] [id number] I MR#: [id number] NAME: MANDY MADRID ROOM: 58735 Age: 61 Sex: M Admission Date: 10/27/2016 : 1955 Attending Physician: Afia Morel M.D. Primary Care Physician: Channing Smith M.D. HISTORY AND PHYSICAL CHIEF COMPLAINT Abnormal labs with acute on chronic kidney disease. HISTORY OF PRESENT ILLNESS This 61-year-old male with hypertension, IDDM, and previous left hemispheric CVA, was transferred from the long term to this facility for abnormal labs. The patient has a history of chronic kidney disease. His last creatinine was 3.5 with a BUN of 45 on October 02, 2016. Labs recently performed at the long term are revealing worsening kidney function. The patient was therefore sent to this facility for further treatment. He is currently receiving IV fluids. He cannot provide history due to his expressive aphasia. The patient was most recently admitted to this facility one month ago for C. difficile colitis and acute on chronic kidney disease. PAST MEDICAL HISTORY 1. Extensive left MCA CVA with chronic right hemiplegia and spasticity of the right arm, along with expressive aphasia and dysphagia requiring PEG tube. 2. Insulin-dependent diabetes mellitus with previous admissions for hypoglycemia and uncontrolled diabetes mellitus. 3. History of hypernatremia. 4. Hypertension. 5. Gastroesophageal reflux disease with EGD May 2016 revealing gastritis. 6. Hyperlipidemia. 7. Anemia, multifactorial, secondary to iron deficiency and chronic kidney disease. 8. Chronic kidney disease with last BUN of 45 and creatinine of 3.5 three weeks ago. 9. Chronic pyuria with yeast growing in the past cultures. 10. Admissions in the past for aspiration pneumonia and hospital-acquired pneumonia. 11. Right BKA for osteomyelitis with positive cultures for proteus and Citrobacter. 12. History of MRSA pneumonia. ALLERGIES Lactose intolerant. HOME MEDICATIONS Unit #: [id number] #: [id number] Patient: MANDY MADRID 1. Levemir 14 units subcutaneous at bedtime. 2. Skin care treatment. 3. Hydralazine 75 mg t.i.d. 4. Glytrol 1 can bolus 6 times daily. 5. Zoloft 50 mg daily. 6. Rapaflo 8 mg daily. 7. Iron gluconate 324 mg daily. 8. Plavix 75 mg daily. 9. Aspirin 81 mg daily. 10. Florastor 250 mg b.i.d. 11. Pepcid 20 mg b.i.d. 12. ProMod liquid protein. 13. Zofran 4 mg q.6 hours as needed. 14. Low-dose sliding scale NovoLog. FAMILY HISTORY Unknown. SOCIAL HISTORY The patient lives at [facility] under the care of Dr. Smith. He currently does not smoke or drink alcohol. REVIEW OF SYSTEMS Impossible to obtain as the patient is nonverbal. PHYSICAL EXAMINATION GENERAL: A nonverbal, thin, 61-year-old male currently in no acute distress. VITAL SIGNS: Temperature 97.4, pulse 54, respirations 18, blood pressure 141/86, and O2 saturation 97% on room air. HEENT: Eyes PERRLA. Extraocular muscles are intact. Pharynx with dry mucosal membranes. NECK: Supple without adenopathy or thyromegaly. CHEST: Clear. CARDIAC: Normal S1 and S2, without S3, S4, or murmur. ABDOMEN: Bowel sounds are present. Nontender. No hepatosplenomegaly or masses. There is a PEG tube in the upper abdomen. EXTREMITIES: Clean, dry right AKA stump. Left leg without edema. The patient does have some wrappings on his left leg which I will have removed. NEUROLOGIC: Patient is awake. He is alert. He follows some commands. He is nonverbal. He has evidence of right hemiparesis. DIAGNOSTIC STUDIES ADMISSION LABORATORY: Hematocrit is 28.2 which is stable and MCV 79.4 with normal white count and platelet count. SMA-12: Glucose 185, BUN 103 and creatinine 4.2, up from a BUN of 45 and creatinine of 3.5 three weeks ago, sodium 131, potassium 5.3, and CO2 is 18. IMAGING: Chest x-ray shows no acute disease. Mild cardiomegaly noted. ASSESSMENT 1. Acute on chronic kidney disease which may in fact be in part related to dehydration. 2. Extensive left middle cerebral artery cerebrovascular accident with expression aphasia and dysphagia requiring percutaneous endoscopic gastrostomy tube placement. 3. Insulin-dependent diabetes mellitus. 4. Hypertension. Unit #: [id number] #: [id number] Patient: MANDY MADRID 5. Chronic anemia. 6. Right czxmr-rvq-bizj amputation. PLANS 1. IV fluids with bicarbonate. 2. Decrease hydralazine. 3. Obtain urinalysis, check postvoid bladder scan. 4. DVT prophylaxis. 5. Nephrology consultation. 6. Long-term prognosis is poor. 1. Dictated by Afia Morel M.D. AML/am TD: 10/27/2016 21:29 JOB #: [id number] HISTORY AND PHYSICAL Page 1 of 1 X Afia Morel MD X HISTORY AND PHYSICAL
--- NOTE | ~2016-10-27 | DS ---
Unit #: [id number] #: [id number] Patient: MANDY MADRID [id number] [address] [address] [id number] I MR#: [id number] NAME: MANDY MADRID ROOM: 571 Age: 61 Sex: M Admission Date: 10/27/2016 : 1955 Discharge Date: 10/30/2016 Attending Physician: Massiel Demarco M.D. Primary Care Physician: Channing Smith M.D. DISCHARGE SUMMARY REASON FOR ADMISSION Abnormal labs at detention. HISTORY OF PRESENT ILLNESS/HOSPITAL COURSE The patient is a 61-year-old male with a history of hypertension, insulin dependent diabetes, aphasic prior left hemispheric CVA and chronic immobility syndrome status post gzotb-uly-woev amputation. The patient presented after being transferred from the detention secondary to worsening kidney function. Apparently his creatinine at the outside facility was noted to be 3.5. His baseline is 3.0. He received IV fluids through hospital course. Consultation was placed to nephrology services, who recommended sodium bicarbonate at discharge. His routine medications were kept as is. He did have issues of hypoglycemia, therefore, his Levemir was discontinued altogether and he was maintained on low-dose NovoLog with Accu-Cheks q.6 h. while on feeding tube. Overall his prognosis is very poor. In the past recommendations have been made to the patient's sister for Hospice, to which she disagrees. FINAL DISCHARGE DIAGNOSES 1. Acute on chronic kidney disease with baseline creatinine 3.0 to 3.2. 2. Extensive left MCA CVA with chronic right hemiplegia and spasticity of the right arm. 3. Expressive aphasia. 4. Chronic dysphagia, status post PEG tube placement. 5. Insulin dependent diabetes. 6. Hypernatremia history. 7. Hypertension. 8. Gastroesophageal reflux disease. 9. Gastritis. 10. Hyperlipidemia. 11. Multifactorial anemia. 12. Iron deficiency anemia. 13. Chronic kidney disease with baseline creatinine 3 to 3.2. 14. Chronic pyuria. 15. Prior history of aspiration pneumonia. 16. Failure to thrive. 17. Right cvevj-rjb-fztw amputation secondary to osteomyelitis. Unit #: [id number] #: [id number] Patient: MANDY MADRID 18. Prior history of MRSA pneumonia. DISCHARGE MEDICATIONS 1. Rapaflo 8 mg PEG daily. 2. Glucerna 1.2 at 60 mL per hour. 3. Plavix 75 mg daily. 4. Aspirin 81 mg daily. 5. NovoLog low-dose sliding scale with insulin. Accu-Cheks q.6 h. 6. Pepcid 20 mg PEG b.i.d. 7. Florastor 250 mg PEG b.i.d. 8. Ferrous gluconate 325 mg PEG daily. 9. Hydralazine 50 mg PEG b.i.d. 10. Zoloft 50 mg PEG daily. 11. Zofran 4 mg PEG q.6 h. p.r.n. DISCHARGE CONDITION Stable. DISPOSITION Back to the detention. LONG-TERM PROGNOSIS Poor. Dictated by... Kristine Claros/satinder TD: 10/30/2016 10:33 JOB #: [id number] DISCHARGE SUMMARY Page 1 of 1 X Massiel Demarco MD X DISCHARGE SUMMARY
--- NOTE | ~2016-10-27 | CR72 ---
[facility] A Service of [facility] RADIOLOGY TEXT RESULTS PATIENT: MANDY MADRID LOCATION: [facility] 571-01 : 59 UNIT #: [id number] AGE: [address]: Massiel Demarco MD SEX: M ORDER DR: [id number] [facility] [address] [place], [place] [address] [id number] I MR#: [id number] Acc #: [id number] NAME: MANDY MADRID : 1955 SEX: M STUDY DATE/TIME: 10/27/2016 19:46 UNIT: [facility] ROOM: [facility] STUDY DESCRIPTION: CR Chest Single View Portable Attending Physician: Afia Morel M.D. Ordering Physician: Caitlin Garcia M.D. Primary Care Physician: Channing Smith M.D. MEDICAL IMAGING REPORT This report is preliminary unless electronic signature is present EXAM Portable chest x-ray, 10/27/2016 HISTORY Short of air. Began today. FINDINGS AP radiograph of the chest is presented. Comparison 09/30/2016. Mild cardiac enlargement. Stable. The lungs moderately well inflated. Improved volume compared to prior study. There is no clear indication of acute infectious or inflammatory disease. No pleural effusion or pneumothorax. No suspicious nodule. Bony structures unremarkable. Dictated by... Raul Johnson M.D. THIS IS AN ELECTRONICALLY VERIFIED REPORT Raul Johnson M.D. at 10/28/2016 10:21 PM ARTEMIO/danna TD: 10/27/2016 23:49 JOB #: [id number] MEDICAL IMAGING REPORT Page 1 of 1 COPY
--- NOTE | ~2016-10-27 | US77 ---
[facility] A Service of [facility] RADIOLOGY TEXT RESULTS PATIENT: MANDY MADRID LOCATION: [facility] 571-01 : 59 UNIT #: [id number] AGE: [address]: Massiel Demarco MD SEX: M ORDER DR: [id number] [id number] [facility]. [place], [place] [address] [id number] MR#: [id number] Acc #: [id number] NAME: MANDY MADRID : 1955 SEX: M STUDY DATE/TIME: 10/28/2016 13:47 UNIT: [facility] ROOM: [facility] STUDY DESCRIPTION: US Kidney Bilateral Complete Attending Physician: Massiel Demarco M.D. Ordering Physician: Victor Hugo Florez M.D. Primary Care Physician: Channing Smith M.D. MEDICAL IMAGING REPORT This report is preliminary unless electronic signature is present EXAM Bilateral renal sonogram HISTORY A 61-year-old male with stage IV chronic kidney disease, elevated BUN and creatinine. COMPARISON Bilateral renal sonogram 09/25/2016 FINDINGS Real-time examination demonstrates increased echogenicity of both kidneys nonspecific but most likely related to underlying medical renal disease in this patient with chronic kidney disease. This is unchanged from prior studies. No hydronephrosis. No mass lesions identified. Central echo complex unremarkable except for areas of increased echogenicity within the lower poles of both the left and right kidney which may represent nonobstructing stones. The right kidney measures 10.3 cm in length. The left kidney measures 12.2 cm in length. Cortical thickness within normal limits. The bladder is partially decompressed. IMPRESSION 1. Increased echogenicity of both kidneys most compatible with underlying medical renal disease. Overall renal size, unchanged from the 09/25/2016 study, and no hydronephrosis. 2. Echogenic areas within the lower poles of both kidneys within the region of the collecting system suggesting nonobstructing stones. Dictated by.Rochelle Lewis M.D. [facility] A Service of [facility] RADIOLOGY TEXT RESULTS PATIENT: MANDY MADRID LOCATION: [facility] 571-01 : 59 UNIT #: [id number] AGE: [address]: Massiel Demarco MD SEX: M ORDER DR: THIS IS AN ELECTRONICALLY VERIFIED REPORT Danis Lewis M.D. at 10/29/2016 9:37 AM [place] TD: 10/28/2016 20:39 JOB #: [id number] MEDICAL IMAGING REPORT Page 1 of 1 COPY
[~2016-10-27 17:07] MED LIST changes: +APRESOLINE GT; +FLORASTORKIDS250 MG GT; +PROMOD946 ML GT; +ZOFRAN GT; +ZOLOFT50 MG PO; +[UNRECOGNIZED DRUG - OTHER]
[2016-10-27 17:53] LABS: BASOPHIL% 0.8 % (0-2.5); EOSINOPHIL# 0.1 X10e3 (0-0.7); EOSINOPHIL% 1.4 % (0.0-7.0); HEMATOCRIT 28.2 % (38.0-50.0); HEMOGLOBIN 8.8 gm/dL (13.0-16.0); LYMPHOCYTE# 0.8 X10e3 (1.0-3.5); LYMPHOCYTE% 16.7 % (17.0-45.0); MEAN CELL VOLUME 79.4 FL (83-96); MEAN CORPUSCULAR HEMOGLOBIN 24.9 PG (28-34); MEAN CORPUSCULAR HGB CONC 31.3 g/dL (30-36); MEAN PLATELET VOLUME 8.7 FL (6.5-11.5); MONOCYTE# 0.3 X10e3 (0-1.0); MONOCYTE% 6.8 % (3.0-12.0); NEUTROPHIL# 3.5 X10e3 (1.5-7.1); NEUTROPHIL% 74.3 % (40-75); PLATELET COUNT 346 X10e3 (140-420); RED BLOOD COUNT 3.55 X10e (3.90-5.60); RED CELL DISTRIBUTION WIDTH 19.7 % (11.0-15.5); WHITE BLOOD COUNT 4.7 X10e3 (4.0-10.5)
[2016-10-27 17:55] LABS: DIFF IND NO
[2016-10-27 18:22] LABS: ALBUMIN SERUM 3.1 g/dL (3.5-5.0); ALKALINE PHOSPHATASE 82 U/L (32-92); ALT (SGPT) 16 U/L (10-40); AST (SGOT) 14 U/L (10-42); BILIRUBIN,TOTAL 0.4 mg/dL (0.2-2.0); PROTEIN TOTAL SERUM 7.9 g/dL (6.0-8.3)
[2016-10-27 18:26] LABS: BILIRUBIN, DIRECT <0.1 mg/dL (0.0-0.2); BILIRUBIN,INDIRECT 0.3 mg/dL (0.0-0.9)
[2016-10-27 19:29] LABS: CALCIUM SERUM 9.7 mg/dL (8.4-10.2); CREATININE SERUM 4.2 mg/dL (0.6-1.4); GLOM FILT RATE Estimated 16.8 mL/min (>60); POTASSIUM 5.3 mmol/L (3.5-5.1)
[2016-10-27 19:31] LABS: BUN/CREATININE RATIO 24.52
[2016-10-28 08:59] LABS: BASOPHIL% 0.3 % (0-2.5); EOSINOPHIL# 0.1 X10e3 (0-0.7); EOSINOPHIL% 1.7 % (0.0-7.0); HEMATOCRIT 27.5 % (38.0-50.0); HEMOGLOBIN 8.5 gm/dL (13.0-16.0); LYMPHOCYTE# 0.7 X10e3 (1.0-3.5); MEAN CORPUSCULAR HEMOGLOBIN 25.4 PG (28-34); MEAN CORPUSCULAR HGB CONC 30.9 g/dL (30-36); MEAN PLATELET VOLUME 8.6 FL (6.5-11.5); MONOCYTE# 0.4 X10e3 (0-1.0); MONOCYTE% 9.3 % (3.0-12.0); NEUTROPHIL% 70.7 % (40-75); PLATELET COUNT 346 X10e3 (140-420); RED BLOOD COUNT 3.35 X10e (3.90-5.60); RED CELL DISTRIBUTION WIDTH 19.8 % (11.0-15.5); WHITE BLOOD COUNT 4.2 X10e3 (4.0-10.5)
[2016-10-28 09:01] LABS: DIFF IND NO
[2016-10-28 09:44] LABS: CALCIUM SERUM 8.7 mg/dL (8.4-10.2); CREATININE SERUM 3.8 mg/dL (0.6-1.4); GLOM FILT RATE Estimated 18.9 mL/min (>60); POTASSIUM 4.4 mmol/L (3.5-5.1)
[2016-10-28 09:45] LABS: BUN/CREATININE RATIO 27.36
[2016-10-28 13:22] LABS: URINE SOURCE CLEAN CATCH
[2016-10-28 13:34] LABS: URINE APPEARANCE TURBID; URINE BILIRUBIN NEG (NEG); URINE BLOOD NEG (NEG); URINE COLOR YELLOW; URINE GLUCOSE NEG (NEG); URINE KETONE NEG (NEG); URINE LEUKOCYTE ESTERASE 3+ (NEG); URINE NITRATE NEG (NEG); URINE PROTEIN 1+ (NEG); URINE SPECIFIC GRAVITY 1.009 (1.003-1.035); URINE UROBILINOGEN 0.2 MG/DL (NEG)
[2016-10-28 13:36] LABS: CULTURE INDICATED? YES; URINE BACTERIA AUWI NEG (NEGATIVE); URINE SQUAMOUS EPITHELIAL CELL NONE SEEN /[HPF]; UWBCS1 AUWI 200-300 (0-5)
[2016-10-28 13:48] LABS: URBCS1 AUWI 0-2 /[HPF] (0-2); URINE YEAST PRESENT
[2016-10-29 07:08] LABS: ALBUMIN SERUM 2.9 g/dL (3.5-5.0); BILIRUBIN,TOTAL 0.4 mg/dL (0.2-2.0); BUN/CREATININE RATIO 28.06; CALCIUM SERUM 8.7 mg/dL (8.4-10.2); CREATININE SERUM 3.1 mg/dL (0.6-1.4); GLOM FILT RATE Estimated 24.2 mL/min (>60); PHOSPHOROUS 4.6 mg/dL (2.5-4.6); POTASSIUM 3.8 mmol/L (3.5-5.1); PROTEIN TOTAL SERUM 7.2 g/dL (6.0-8.3)
[2016-10-30 06:07] LABS: HEMATOCRIT 29.3 % (38.0-50.0); HEMOGLOBIN 9.3 gm/dL (13.0-16.0); MEAN CELL VOLUME 79.9 FL (83-96); MEAN CORPUSCULAR HEMOGLOBIN 25.3 PG (28-34); MEAN CORPUSCULAR HGB CONC 31.7 g/dL (30-36); MEAN PLATELET VOLUME 8.5 FL (6.5-11.5); RED BLOOD COUNT 3.67 X10e (3.90-5.60); RED CELL DISTRIBUTION WIDTH 19.7 % (11.0-15.5); WHITE BLOOD COUNT 5.4 X10e3 (4.0-10.5)
[2016-10-30 07:07] LABS: BUN/CREATININE RATIO 24.82; CALCIUM SERUM 8.3 mg/dL (8.4-10.2); CREATININE SERUM 2.9 mg/dL (0.6-1.4); GLOM FILT RATE Estimated 26.2 mL/min (>60); POTASSIUM 3.9 mmol/L (3.5-5.1)
== END 2016-10-30 18:09 | disposition home or self-care (01) | DRG 683 ==
LOC: CED 17:07 → CEDOF 20:10 → C5C 22:05
PROVIDERS: Emergency Medicine; Family Medicine; Internal Medicine Nephrology
DX: N17.9 Acute kidney failure, unspecified (principal); I69.351 Hemiplegia and hemiparesis following cerebral infarction affecting right dominant side; E11.22 Type 2 diabetes mellitus with diabetic chronic kidney disease; E87.2 Acidosis; E11.649 Type 2 diabetes mellitus with hypoglycemia without coma; R13.10 Dysphagia, unspecified; N39.0 Urinary tract infection, site not specified; E86.0 Dehydration; I12.9 Hypertensive chronic kidney disease with stage 1 through stage 4 chronic kidney disease, or unspecified chronic kidney disease; N18.4 Chronic kidney disease, stage 4 (severe); Z79.4 Long term (current) use of insulin; Z51.5 Encounter for palliative care; I69.391 Dysphagia following cerebral infarction; I69.320 Aphasia following cerebral infarction; Z93.1 Gastrostomy status; K21.9 Gastro-esophageal reflux disease without esophagitis; K29.70 Gastritis, unspecified, without bleeding; E78.5 Hyperlipidemia, unspecified; D64.9 Anemia, unspecified; D50.9 Iron deficiency anemia, unspecified; R62.7 Adult failure to thrive; Z89.511 Acquired absence of right leg below knee; M62.3 Immobility syndrome (paraplegic); Z91.011 Allergy to milk products; Z79.82 Long term (current) use of aspirin; Z87.01 Personal history of pneumonia (recurrent)
CPT/HCPCS: 36415; 71010; 76770; 80048; 80053; 80076; 81003; 82947; 83735; 83880; 84100; 84300; 85025; 85027; 85610; 87086; 89190; 96360; 99285; J1644; J1815

== ENCOUNTER 2016-12-04 09:15 | Emergency (ER) | payer OTHER ==
--- NOTE | ~2016-12-04 | EKG ---
PATIENT: MANDY MADRID UNIT #: [id number] Ventricular Rate: 50 BPM Atrial Rate: 50 BPM P-R Interval: 170 ms QRS Duration: 94 ms Q-T Interval: 480 ms QTC Calculation(Bezet): 437 ms P Wilmot: 68 degrees Calculated R Wilmot: 78 degrees Calculated T Wilmot: 74 degrees Diagnosis Line: Sinus bradycardia Diagnosis Line: Moderate voltage criteria for LVH, may be normal Diagnosis Line: variant Diagnosis Line: Borderline ECG Diagnosis Line: When compared with ECG of 24-SEP-2016 22:52, Diagnosis Line: No significant change was found Diagnosis Line: Confirmed by AGUEDA COREY MD ([id number]) on Diagnosis Line: 12/06/2016 1:03:26 PM INTERPRETING MD: DARVIN
[2016-12-04] MEDS ORDERED: SODIUM BICARBO650 MG PEG (10:16)
[2016-12-04] MEDS ORDERED: SILVADENE TOP (10:21)
[2016-12-04 10:53] LABS: BASOPHIL% 0.8 % (0-2.5); EOSINOPHIL# 0.1 X10e3 (0-0.7); EOSINOPHIL% 1.4 % (0.0-7.0); HEMATOCRIT 28.2 % (38.0-50.0); HEMOGLOBIN 8.9 gm/dL (13.0-16.0); LYMPHOCYTE# 1.1 X10e3 (1.0-3.5); LYMPHOCYTE% 20.3 % (17.0-45.0); MEAN CELL VOLUME 80.9 FL (83-96); MEAN CORPUSCULAR HEMOGLOBIN 25.4 PG (28-34); MEAN CORPUSCULAR HGB CONC 31.5 g/dL (30-36); MEAN PLATELET VOLUME 7.9 FL (6.5-11.5); MONOCYTE# 0.4 X10e3 (0-1.0); MONOCYTE% 8.2 % (3.0-12.0); NEUTROPHIL# 3.6 X10e3 (1.5-7.1); NEUTROPHIL% 69.3 % (40-75); PLATELET COUNT 313 X10e3 (140-420); RED BLOOD COUNT 3.49 X10e (3.90-5.60); WHITE BLOOD COUNT 5.2 X10e3 (4.0-10.5)
[2016-12-04 10:58] LABS: DIFF IND NO
[2016-12-04 11:26] LABS: CALCIUM SERUM 9.5 mg/dL (8.4-10.2); CREATININE SERUM 2.6 mg/dL (0.6-1.4); POTASSIUM 4.8 mmol/L (3.5-5.1)
[2016-12-04 11:29] LABS: BUN/CREATININE RATIO 39.61
== END 2016-12-04 15:25 | disposition home or self-care (01) ==
LOC: CED 09:15
PROVIDERS: Emergency Medicine
DX: E87.5 Hyperkalemia (principal); E86.0 Dehydration; E11.9 Type 2 diabetes mellitus without complications; E78.5 Hyperlipidemia, unspecified; I10 Essential (primary) hypertension; Z86.73 Personal history of transient ischemic attack (TIA), and cerebral infarction without residual deficits; Z88.8 Allergy status to other drugs, medicaments and biological substances; Z79.82 Long term (current) use of aspirin; Z79.4 Long term (current) use of insulin; Z79.899 Other long term (current) drug therapy
CPT/HCPCS: 36415; 80048; 83690; 85025; 93005; 96360; 99284